=== PATIENT | female | born 1970 | race African-American/Black ===

== ENCOUNTER 2020-06-06 14:12 | Inpatient (IN) | payer MEDICARE, OTHER ==
[~2020-06-06] VITALS: Ht 162.6 cm; Wt 99.8 kg
[2020-06-06] MEDS ORDERED: ACETAMINOPHEN 325MG TABLET PO STA (15:34)
[2020-06-06] MEDS ORDERED: SODIUM CHLORIDE 0.9% 1000ML BAG (SEPSIS BOLUS) IV ONE (15:45)
[2020-06-06 16:39] LABS: HEMATOCRIT. 39.3 % (36.0-48.0); HEMOGLOBIN. 12.8 g/dL (12.0-16.0); MEAN CORPUSCULAR VOLUME 89.3 fL (81.0-99.0); MEAN PLATELET VOLUME 9.5 fl (7.4-10.4); PLATELET 144 x1000/uL (130-400); RED CELL DISTRIBUTION WIDTH 15.1 % (11.6-14.6)
[2020-06-06 16:46] LABS: INR 1.1; PROTHROMBIN TIME 11.3 sec (9.6-11.0)
[2020-06-06 16:47] LABS: CHLORIDE 97 mEq/L (98-107)
[2020-06-06 17:13] LABS: PLATELET ESTIMATE NORMAL
[2020-06-06] MEDS ORDERED: VANCOMYCIN 1 G PREMIX 200 ML IV NR (17:45)
[2020-06-06] MEDS ORDERED: CEFEPIME 2,000 MG in DEXT 5% WATER 100 ML IV SCH (18:00)
[2020-06-07] MEDS ORDERED: DEXTROSE 50% WATER 50ML SYRINGE IV ONE (06:45)
[2020-06-07] MEDS ORDERED: ACETAMINOPHEN 325MG TABLET PO PRN (06:48)
[2020-06-07 09:18] VITALS: BP 167/80
[2020-06-07] MEDS ORDERED: ASPI-1158 MT (10:57)
[2020-06-07] MEDS ORDERED: NEPVIT MT (10:57)
[2020-06-07] MEDS ORDERED: GABA-290 PO (10:57)
[2020-06-07] MEDS ORDERED: DIPH50CA47 MT (10:57)
[2020-06-07] MEDS ORDERED: PRAV10TA35 MT (10:57)
[2020-06-07] MEDS ORDERED: NIFE-33 MT (10:57)
[2020-06-07] MEDS ORDERED: FERR210T MT (10:57)
[2020-06-07] MEDS ORDERED: SEVE800T8 MT (10:57)
[2020-06-07] MEDS ORDERED: TIMO5DRO27 RIGHTEYE (11:02)
[2020-06-07] MEDS ORDERED: MIDO10TA MT (11:02)
[2020-06-07] MEDS ORDERED: LOPE2CAP MT (11:02)
[2020-06-07 11:05] VITALS: BP 169/80
[2020-06-07] MEDS ORDERED: BENZONATATE 100MG CAPSULE PO PRN (11:45)
[2020-06-07] MEDS ORDERED: ONDANSETRON HCL 4MG/2ML INJ IV PRN (11:45)
[2020-06-07] MEDS ORDERED: CEFTRIAXONE 1 G PREMIX 50 ML IV SCH (11:45)
[2020-06-07 12:00] VITALS: BP 158/77
[2020-06-07] MEDS: INSULIN LISPRO 100 UNITS/ML SUBCUT SCH ×3 (12:10→21:00)
[2020-06-07] MEDS: BLOOD SUGAR DIAGNOSTIC STRIP TEST SCH ×3 (12:32→21:00)
[2020-06-07] MEDS: LOSARTAN POTASSIUM 100 MG TABLET PO SCH (13:03)
[2020-06-07] MEDS: ENOXAPARIN 30MG/0.3ML SYR SUBCUT SCH (13:03)
[2020-06-07] MEDS: AZITHROMYCIN 250 MG TABLET PO SCH (13:04)
[2020-06-07] MEDS: ACETAMINOPHEN 325MG TABLET PO PRN (13:04)
[2020-06-07 16:00] VITALS: BP 148/77
[2020-06-07] MEDS: CEFTRIAXONE 1,000 MG in DEXTROSE 5% WATER 50 ML IV SCH (18:18)
[2020-06-07] MEDS: NIFEDIPINE XL 30MG TAB PO SCH (18:18)
[2020-06-07] MEDS ORDERED: ALBUTEROL 6.7GM HFA INHALER ORI PRN (18:30)
[2020-06-07] MEDS ORDERED: DEXAMETHASONE 10 MG/ML VIAL IV NR (18:30)
[2020-06-07 18:41] LABS: BG BASE EXCESS 1.2 mmol/L (-2.0-2.0); BG CARBOXYHEMOGLOBIN 0.4 % (0.5-1.5); BG DEOXYHEMOGLOBIN 6.4 % (0.0-5.0); BG FRACTION INSPIRED OXYGEN 28; BG HCO3 ACT 27.3 mmol/L (22.0-26.0); BG METHEMOGLOBIN 0.3 % (0.0-1.5); BG OXYGEN SATURATION 93.6 % (92.0-98.5); BG OXYHEMOGLOBIN 92.9 % (94.0-97.0); BG PCO2 49.2 mmHg (35.0-45.0); BG PH 7.362 (7.350-7.450); BG PO2 71.7 mmHg (75.0-100.0); BG SAMPLE SITE RIGHT RADIAL; BG TOTAL HEMOGLOBIN 12.9 g/dL (12.0-18.0); BG VENT MODE NASAL CANNULA
[2020-06-07 20:00] VITALS: BP 102/70
[2020-06-07] MEDS: GUAIFENESIN 600MG ER TABLET PO SCH (22:05)
[2020-06-08] VITALS: BP 157/80
[2020-06-08] MEDS: ACETAMINOPHEN 325MG TABLET PO PRN (00:25)
[2020-06-08 04:00] VITALS: BP 144/63
[2020-06-08] MEDS: BLOOD SUGAR DIAGNOSTIC STRIP TEST SCH ×4 (05:51→22:13)
[2020-06-08] MEDS: INSULIN LISPRO 100 UNITS/ML SUBCUT SCH ×4 (06:16→22:14)
[2020-06-08] MEDS ORDERED: LIDOCAINE HCL/PF 1% 2ML VIAL ONE (07:00)
[2020-06-08 08:00] VITALS: BP 145/68
[2020-06-08] MEDS ORDERED: FUROSEMIDE 100MG/10ML VIAL IVP SCH (08:15)
[2020-06-08 08:34] LABS: BG BASE EXCESS -3.2 mmol/L (-2.0-2.0); BG CARBOXYHEMOGLOBIN 0.2 % (0.5-1.5); BG DEOXYHEMOGLOBIN 4.4 % (0.0-5.0); BG HCO3 ACT 22.2 mmol/L (22.0-26.0); BG METHEMOGLOBIN 0.2 % (0.0-1.5); BG OXYGEN SATURATION 95.6 % (92.0-98.5); BG OXYHEMOGLOBIN 95.2 % (94.0-97.0); BG PCO2 41.2 mmHg (35.0-45.0); BG PH 7.349 (7.350-7.450); BG PO2 86.4 mmHg (75.0-100.0); BG SAMPLE SITE RIGHT RADIAL; BG TOTAL HEMOGLOBIN 12.9 g/dL (12.0-18.0); BG VENT MODE NASAL CANNULA
[2020-06-08] MEDS: LOSARTAN POTASSIUM 100 MG TABLET PO SCH (09:00)
[2020-06-08] MEDS: NIFEDIPINE XL 30MG TAB PO SCH (09:00)
[2020-06-08 09:29] LABS: BASOPHILS % 0.5 % (0.0-2.0); HEMATOCRIT. 37.9 % (36.0-48.0); HEMOGLOBIN. 12.2 g/dL (12.0-16.0); LYMPHOCYTES % 14.9 % (20.0-50.0); MEAN CORPUSCULAR HEMOGLOBIN 28.5 pg (28.0-32.0); MEAN CORPUSCULAR VOLUME 88.6 fL (81.0-99.0); MEAN PLATELET VOLUME 10.3 fl (7.4-10.4); MONOCYTES % 2.3 % (2.0-8.0); NEUTROPHILS % 82.3 % (40.0-76.0); PLATELET 141 x1000/uL (130-400); RED BLOOD CELL COUNT 4.28 mill/uL (4.2-5.4); RED CELL DISTRIBUTION WIDTH 15.1 % (11.6-14.6)
[2020-06-08 09:43] LABS: INR 1.1; PROTHROMBIN TIME 11.6 sec (9.6-11.0)
[2020-06-08 10:15] LABS: PHOSPHORUS 8.5 mg/dL (2.5-4.9)
[2020-06-08] MEDS: GUAIFENESIN 600MG ER TABLET PO SCH ×2 (10:33→21:49)
[2020-06-08] MEDS: SEVELAMER CARBONATE 800 MG TABLET PO SCH (10:33)
[2020-06-08] MEDS: DEXAMETHASONE 10 MG/ML VIAL IV SCH (10:33)
[2020-06-08] MEDS: AZITHROMYCIN 250 MG TABLET PO SCH (10:34)
[2020-06-08] MEDS: FOLIC ACID/VITAMIN B COMP W-C TABLET PO SCH (10:34)
[2020-06-08] MEDS ORDERED: REMDESIVIR 200 MG in SODIUM CHLORIDE 0.9% 250 ML IV ONE (11:15)
[2020-06-08] MEDS: ENOXAPARIN 30MG/0.3ML SYR SUBCUT SCH (11:22)
[2020-06-08] MEDS: ASPIRIN 81MG EC TABLET PO SCH (11:22)
[2020-06-08] MEDS ORDERED: BLOOD SUGAR DIAGNOSTIC STRIP TEST SCH (11:40)
[2020-06-08 12:00] VITALS: BP 130/67
[2020-06-08 12:17] LABS: BG BASE EXCESS -3.7 mmol/L (-2.0-2.0); BG CARBOXYHEMOGLOBIN 0.3 % (0.5-1.5); BG DEOXYHEMOGLOBIN 3.1 % (0.0-5.0); BG FRACTION INSPIRED OXYGEN 48; BG HCO3 ACT 22.1 mmol/L (22.0-26.0); BG METHEMOGLOBIN 0.3 % (0.0-1.5); BG OXYGEN SATURATION 96.9 % (92.0-98.5); BG OXYHEMOGLOBIN 96.3 % (94.0-97.0); BG PCO2 43.1 mmHg (35.0-45.0); BG PH 7.328 (7.350-7.450); BG PO2 97.6 mmHg (75.0-100.0); BG SAMPLE SITE RIGHT RADIAL; BG TOTAL HEMOGLOBIN 12.7 g/dL (12.0-18.0); BG VENT MODE MASK - SIMPLE
[2020-06-08] MEDS: CEFTRIAXONE 1,000 MG in DEXTROSE 5% WATER 50 ML IV SCH (12:32)
[2020-06-08] MEDS ORDERED: SODIUM POLYSTYRENE SULFONATE 15 G/60 ML BOT PO SCH (14:00)
[2020-06-08 15:46] VITALS: BP 121/75
[2020-06-08 20:00] VITALS: BP 123/80
[2020-06-08 20:37] LABS: T4 FREE 1.11 ng/dL (0.76-1.46)
[2020-06-08 20:52] LABS: FOLIC ACID (FOLATE) SERUM >20 ng/mL ng/mL (>5.38)
[2020-06-08 21:04] LABS: VITAMIN B12 SERUM >2000 pg/mL pg/mL (211-911)
[2020-06-09] VITALS: BP 140/68
[2020-06-09 04:00] VITALS: BP 143/77
[2020-06-09 06:47] LABS: BASOPHILS % 0.2 % (0.0-2.0); HEMATOCRIT. 37.6 % (36.0-48.0); HEMOGLOBIN. 12.3 g/dL (12.0-16.0); LYMPHOCYTES % 8.1 % (20.0-50.0); MEAN CORPUSCULAR HEMOGLOBIN 28.5 pg (28.0-32.0); MEAN CORPUSCULAR VOLUME 87.3 fL (81.0-99.0); MEAN PLATELET VOLUME 9.9 fl (7.4-10.4); MONOCYTES % 6.8 % (2.0-8.0); NEUTROPHILS % 84.9 % (40.0-76.0); PLATELET 159 x1000/uL (130-400); RED CELL DISTRIBUTION WIDTH 15.6 % (11.6-14.6)
[2020-06-09] MEDS: BLOOD SUGAR DIAGNOSTIC STRIP TEST SCH ×4 (07:30→20:50)
[2020-06-09 08:00] VITALS: BP 169/104
[2020-06-09] MEDS: NIFEDIPINE XL 30MG TAB PO SCH (09:01)
[2020-06-09] MEDS: DEXAMETHASONE 10 MG/ML VIAL IV SCH (09:01)
[2020-06-09] MEDS: ASPIRIN 81MG EC TABLET PO SCH (09:01)
[2020-06-09] MEDS: GUAIFENESIN 600MG ER TABLET PO SCH ×2 (09:01→20:50)
[2020-06-09] MEDS: FOLIC ACID/VITAMIN B COMP W-C TABLET PO SCH (09:02)
[2020-06-09] MEDS: SEVELAMER CARBONATE 800 MG TABLET PO SCH (09:02)
[2020-06-09] MEDS: CLOPIDOGREL 75MG TABLET PO SCH (09:02)
[2020-06-09] MEDS: LOSARTAN POTASSIUM 100 MG TABLET PO SCH (09:02)
[2020-06-09] MEDS: ENOXAPARIN 30MG/0.3ML SYR SUBCUT SCH (09:02)
[2020-06-09] MEDS: AZITHROMYCIN 250 MG TABLET PO SCH (09:02)
[2020-06-09] MEDS: INSULIN LISPRO 100 UNITS/ML SUBCUT SCH ×4 (09:04→21:03)
[2020-06-09 09:12] LABS: CHLORIDE 97 mEq/L (98-107)
[2020-06-09] MEDS ORDERED: REMDESIVIR 100 MG in SODIUM CHLORIDE 0.9% 250 ML IV SCH (11:15)
[2020-06-09 12:00] VITALS: BP 151/63
[2020-06-09] MEDS ORDERED: LORAZEPAM 2MG/ML CPJ IV SCH (13:00)
[2020-06-09] MEDS: CEFTRIAXONE 1,000 MG in DEXTROSE 5% WATER 50 ML IV SCH (13:38)
[2020-06-09 16:00] VITALS: BP_SYST 130; BP_SYST 87; BP_DIAS 60; BP_DIAS 62
[2020-06-09 20:00] VITALS: BP 145/78
[2020-06-09] MEDS: ATORVASTATIN CALCIUM 40MG TABLET PO SCH (20:47)
[2020-06-10] VITALS: BP 161/77
[2020-06-10 04:00] VITALS: BP 116/56
[2020-06-10 06:04] LABS: CHLORIDE 107 mEq/L (98-107)
[2020-06-10 06:17] LABS: HDL CHOLESTEROL 15 mg/dL (40-59); LDL CHOLESTEROL 91 mg/dL (5-100)
[2020-06-10] MEDS: INSULIN LISPRO 100 UNITS/ML SUBCUT SCH ×4 (06:36→20:54)
[2020-06-10] MEDS: BLOOD SUGAR DIAGNOSTIC STRIP TEST SCH ×4 (06:36→20:54)
[2020-06-10 06:37] LABS: EOSINOPHILS % 0.3 % (0.0-5.0); HEMATOCRIT. 36.9 % (36.0-48.0); HEMOGLOBIN. 12.4 g/dL (12.0-16.0); LYMPHOCYTES % 8.6 % (20.0-50.0); MEAN CORPUSCULAR HEMOGLOBIN 28.9 pg (28.0-32.0); MEAN CORPUSCULAR VOLUME 85.9 fL (81.0-99.0); NEUTROPHILS % 84.1 % (40.0-76.0); PLATELET 143 x1000/uL (130-400); RED CELL DISTRIBUTION WIDTH 14.8 % (11.6-14.6)
[2020-06-10 08:00] VITALS: BP 144/67
[2020-06-10 08:57] LABS: BG BASE EXCESS -0.5 mmol/L (-2.0-2.0); BG CARBOXYHEMOGLOBIN 0.4 % (0.5-1.5); BG DEOXYHEMOGLOBIN 6.6 % (0.0-5.0); BG FRACTION INSPIRED OXYGEN 32; BG HCO3 ACT 24.4 mmol/L (22.0-26.0); BG METHEMOGLOBIN 0.2 % (0.0-1.5); BG OXYGEN SATURATION 93.4 % (92.0-98.5); BG OXYHEMOGLOBIN 92.8 % (94.0-97.0); BG PCO2 40.9 mmHg (35.0-45.0); BG PH 7.393 (7.350-7.450); BG PO2 68.1 mmHg (75.0-100.0); BG SAMPLE SITE RIGHT RADIAL; BG TOTAL HEMOGLOBIN 12.8 g/dL (12.0-18.0); BG VENT MODE NASAL CANNULA
[2020-06-10] MEDS ORDERED: NIFEDIPINE XL 60MG TAB PO SCH (09:00)
[2020-06-10] MEDS: LOSARTAN POTASSIUM 100 MG TABLET PO SCH (09:00)
[2020-06-10] MEDS: CLOPIDOGREL 75MG TABLET PO SCH (09:32)
[2020-06-10] MEDS: AZITHROMYCIN 250 MG TABLET PO SCH (09:32)
[2020-06-10] MEDS: FOLIC ACID/VITAMIN B COMP W-C TABLET PO SCH (09:32)
[2020-06-10] MEDS: SEVELAMER CARBONATE 800 MG TABLET PO SCH (09:32)
[2020-06-10] MEDS: DEXAMETHASONE 10 MG/ML VIAL IV SCH (09:32)
[2020-06-10] MEDS: ASPIRIN 81MG EC TABLET PO SCH (09:32)
[2020-06-10] MEDS: GUAIFENESIN 600MG ER TABLET PO SCH ×2 (09:32→20:34)
[2020-06-10] MEDS: ENOXAPARIN 30MG/0.3ML SYR SUBCUT SCH (09:38)
[2020-06-10 12:00] VITALS: BP 143/71
[2020-06-10] MEDS: CEFTRIAXONE 1,000 MG in DEXTROSE 5% WATER 50 ML IV SCH (13:52)
[2020-06-10 14:40] LABS: BG CARBOXYHEMOGLOBIN 0.5 % (0.5-1.5); BG DEOXYHEMOGLOBIN 14.2 % (0.0-5.0); BG FRACTION INSPIRED OXYGEN 21; BG HCO3 ACT 23.4 mmol/L (22.0-26.0); BG METHEMOGLOBIN 0.1 % (0.0-1.5); BG OXYGEN SATURATION 85.7 % (92.0-98.5); BG OXYHEMOGLOBIN 85.2 % (94.0-97.0); BG PCO2 38.3 mmHg (35.0-45.0); BG PH 7.404 (7.350-7.450); BG PO2 52.2 mmHg (75.0-100.0); BG SAMPLE SITE RIGHT RADIAL; BG TOTAL HEMOGLOBIN 13.2 g/dL (12.0-18.0); BG VENT MODE ROOM AIR
[2020-06-10 16:00] VITALS: BP 164/82
[2020-06-10 20:00] VITALS: BP 160/74
[2020-06-10] MEDS: ATORVASTATIN CALCIUM 40MG TABLET PO SCH (20:34)
[2020-06-10] MEDS: ACETAMINOPHEN 325MG TABLET PO PRN (20:35)
[2020-06-10] MEDS ORDERED: NIFEDIPINE XL 60MG TAB PO NR (20:45)
[2020-06-10] MEDS ORDERED: LOSARTAN POTASSIUM 100 MG TABLET PO NR (20:45)
[2020-06-11] VITALS: BP 156/62
[2020-06-11 04:00] VITALS: BP 156/76
[2020-06-11] MEDS: BLOOD SUGAR DIAGNOSTIC STRIP TEST SCH ×4 (06:27→21:01)
[2020-06-11] MEDS: INSULIN LISPRO 100 UNITS/ML SUBCUT SCH ×4 (06:28→21:02)
[2020-06-11 08:00] VITALS: BP 141/68
[2020-06-11] MEDS: LOSARTAN POTASSIUM 100 MG TABLET PO SCH (08:58)
[2020-06-11] MEDS: GUAIFENESIN 600MG ER TABLET PO SCH ×2 (08:58→21:00)
[2020-06-11] MEDS: ASPIRIN 81MG EC TABLET PO SCH (08:58)
[2020-06-11] MEDS: AZITHROMYCIN 250 MG TABLET PO SCH (08:58)
[2020-06-11] MEDS: SEVELAMER CARBONATE 800 MG TABLET PO SCH (08:58)
[2020-06-11] MEDS: FOLIC ACID/VITAMIN B COMP W-C TABLET PO SCH (08:59)
[2020-06-11] MEDS: DEXAMETHASONE 10 MG/ML VIAL IV SCH (08:59)
[2020-06-11] MEDS: NIFEDIPINE XL 60MG TAB PO SCH ×2 (08:59→21:00)
[2020-06-11] MEDS: CLOPIDOGREL 75MG TABLET PO SCH (08:59)
[2020-06-11] MEDS: ENOXAPARIN 30MG/0.3ML SYR SUBCUT SCH (09:00)
[2020-06-11 09:30] LABS: BG BASE EXCESS 3.1 mmol/L (-2.0-2.0); BG CARBOXYHEMOGLOBIN 0.6 % (0.5-1.5); BG DEOXYHEMOGLOBIN 14.8 % (0.0-5.0); BG HCO3 ACT 27.1 mmol/L (22.0-26.0); BG METHEMOGLOBIN 0.2 % (0.0-1.5); BG OXYGEN SATURATION 85.1 % (92.0-98.5); BG OXYHEMOGLOBIN 84.4 % (94.0-97.0); BG PCO2 39.2 mmHg (35.0-45.0); BG PH 7.457 (7.350-7.450); BG PO2 48.9 mmHg (75.0-100.0); BG SAMPLE SITE RIGHT RADIAL; BG TOTAL HEMOGLOBIN 15.4 g/dL (12.0-18.0); BG VENT MODE NASAL CANNULA
[2020-06-11 12:00] VITALS: BP 125/64
[2020-06-11] MEDS: CEFTRIAXONE 1,000 MG in DEXTROSE 5% WATER 50 ML IV SCH (12:14)
[2020-06-11 16:00] VITALS: BP 92/56
[2020-06-11] MEDS ORDERED: DEXTROSE 50% WATER 50ML SYRINGE IV PRN (18:45)
[2020-06-11 20:00] VITALS: BP 138/67
[2020-06-11] MEDS: ATORVASTATIN CALCIUM 40MG TABLET PO SCH (21:00)
[2020-06-11] MEDS ORDERED: BLOOD SUGAR DIAGNOSTIC STRIP TEST SCH (21:00)
[2020-06-11] MEDS: INSULIN GLARGINE UD 100 UNITS/ML SYR SUBCUT SCH (21:27)
[2020-06-12] VITALS (8 sets, daily range): BP systolic 100–130; BP diastolic 44–67
[2020-06-12] MEDS: BLOOD SUGAR DIAGNOSTIC STRIP TEST SCH ×4 (06:41→20:04)
[2020-06-12] MEDS: INSULIN LISPRO 100 UNITS/ML SUBCUT SCH ×4 (07:10→20:03)
[2020-06-12] MEDS: ENOXAPARIN 30MG/0.3ML SYR SUBCUT SCH (08:21)
[2020-06-12] MEDS: LOSARTAN POTASSIUM 100 MG TABLET PO SCH (08:22)
[2020-06-12] MEDS: GUAIFENESIN 600MG ER TABLET PO SCH ×2 (08:22→20:04)
[2020-06-12] MEDS: CLOPIDOGREL 75MG TABLET PO SCH (08:22)
[2020-06-12] MEDS: FOLIC ACID/VITAMIN B COMP W-C TABLET PO SCH (08:22)
[2020-06-12] MEDS: SEVELAMER CARBONATE 800 MG TABLET PO SCH (08:22)
[2020-06-12] MEDS: NIFEDIPINE XL 60MG TAB PO SCH ×2 (08:22→20:04)
[2020-06-12] MEDS: ASPIRIN 81MG EC TABLET PO SCH (08:22)
[2020-06-12] MEDS: DEXAMETHASONE 10 MG/ML VIAL IV SCH (08:22)
[2020-06-12] MEDS: AZITHROMYCIN 250 MG TABLET PO SCH (08:22)
[2020-06-12 09:43] LABS: HEMATOCRIT. 40.6 % (36.0-48.0); HEMOGLOBIN. 13.1 g/dL (12.0-16.0); MEAN CORPUSCULAR HEMOGLOBIN 28.5 pg (28.0-32.0); MEAN CORPUSCULAR VOLUME 88.3 fL (81.0-99.0); RED CELL DISTRIBUTION WIDTH 15.5 % (11.6-14.6)
[2020-06-12] MEDS: INSULIN GLARGINE UD 100 UNITS/ML SYR SUBCUT SCH ×2 (10:17→23:29)
[2020-06-12 10:32] LABS: CHLORIDE 95 mEq/L (98-107)
[2020-06-12 10:38] LABS: PHOSPHORUS 6.3 mg/dL (2.5-4.9)
[2020-06-12 10:39] LABS: LDL CHOLESTEROL 62 mg/dL (5-100)
[2020-06-12 10:40] LABS: HDL CHOLESTEROL 64 mg/dL (40-59)
[2020-06-12 11:53] LABS: PLATELET ESTIMATE NORMAL
[2020-06-12 11:55] LABS: PLATELET 185 x1000/uL (130-400)
[2020-06-12] MEDS: CEFTRIAXONE 1,000 MG in DEXTROSE 5% WATER 50 ML IV SCH (12:31)
[2020-06-12] MEDS: ATORVASTATIN CALCIUM 40MG TABLET PO SCH (20:04)
[2020-06-12] MEDS ORDERED: FUROSEMIDE 100MG/10ML VIAL IVP NR (21:15)
[2020-06-13] VITALS (42 sets, daily range): BP systolic 82–149; BP diastolic 32–90
[2020-06-13 04:11] LABS: BG BASE EXCESS 1.5 mmol/L (-2.0-2.0); BG CARBOXYHEMOGLOBIN 0.5 % (0.5-1.5); BG DEOXYHEMOGLOBIN 11.8 % (0.0-5.0); BG FRACTION INSPIRED OXYGEN 100; BG HCO3 ACT 24.8 mmol/L (22.0-26.0); BG METHEMOGLOBIN 0.1 % (0.0-1.5); BG OXYGEN SATURATION 88.1 % (92.0-98.5); BG OXYHEMOGLOBIN 87.6 % (94.0-97.0); BG PCO2 35.2 mmHg (35.0-45.0); BG PH 7.466 (7.350-7.450); BG PO2 54.5 mmHg (75.0-100.0); BG SAMPLE SITE RIGHT RADIAL; BG TOTAL HEMOGLOBIN 14.1 g/dL (12.0-18.0); BG VENT MODE MASK - NRB
[2020-06-13 06:35] LABS: HEMATOCRIT. 38.8 % (36.0-48.0); HEMOGLOBIN. 12.8 g/dL (12.0-16.0); MEAN CORPUSCULAR HEMOGLOBIN 28.5 pg (28.0-32.0); MEAN CORPUSCULAR VOLUME 86.2 fL (81.0-99.0); RED CELL DISTRIBUTION WIDTH 15.6 % (11.6-14.6)
[2020-06-13 06:41] LABS: CHLORIDE 100 mEq/L (98-107)
[2020-06-13] MEDS: BLOOD SUGAR DIAGNOSTIC STRIP TEST SCH ×4 (06:49→21:00)
[2020-06-13] MEDS: INSULIN LISPRO 100 UNITS/ML SUBCUT SCH ×4 (06:49→22:59)
[2020-06-13] MEDS ORDERED: HYDROCODONE/ACETAMINOPHEN 5/325MG TABLET PO PRN (07:00)
[2020-06-13 08:07] LABS: PHOSPHORUS 5.5 mg/dL (2.5-4.9)
[2020-06-13] MEDS: ASPIRIN 81MG EC TABLET PO SCH (09:42)
[2020-06-13] MEDS: DEXAMETHASONE 10 MG/ML VIAL IV SCH (09:42)
[2020-06-13] MEDS: SEVELAMER CARBONATE 800 MG TABLET PO SCH (09:42)
[2020-06-13] MEDS: LOSARTAN POTASSIUM 100 MG TABLET PO SCH (09:42)
[2020-06-13] MEDS: CLOPIDOGREL 75MG TABLET PO SCH (09:43)
[2020-06-13] MEDS: NIFEDIPINE XL 60MG TAB PO SCH ×2 (09:43→21:00)
[2020-06-13] MEDS: GUAIFENESIN 600MG ER TABLET PO SCH ×2 (09:43→22:58)
[2020-06-13] MEDS: FOLIC ACID/VITAMIN B COMP W-C TABLET PO SCH (09:43)
[2020-06-13] MEDS: ENOXAPARIN 30MG/0.3ML SYR SUBCUT SCH (09:44)
[2020-06-13] MEDS ORDERED: LIDOCAINE HCL/PF 1% 2ML VIAL ONE (10:00)
[2020-06-13 10:55] LABS: PLATELET ESTIMATE NORMAL
[2020-06-13 10:57] LABS: PLATELET 252 x1000/uL (130-400)
[2020-06-13 15:58] LABS: BG BASE EXCESS 0.2 mmol/L (-2.0-2.0); BG CARBOXYHEMOGLOBIN 0.3 % (0.5-1.5); BG DEOXYHEMOGLOBIN 22.1 % (0.0-5.0); BG FRACTION INSPIRED OXYGEN 100; BG HCO3 ACT 24.1 mmol/L (22.0-26.0); BG METHEMOGLOBIN 0.1 % (0.0-1.5); BG OXYGEN SATURATION 77.8 % (92.0-98.5); BG OXYHEMOGLOBIN 77.5 % (94.0-97.0); BG PH 7.432 (7.350-7.450); BG PO2 43.2 mmHg (75.0-100.0); BG SAMPLE SITE RIGHT RADIAL; BG TOTAL HEMOGLOBIN 13.6 g/dL (12.0-18.0); BG VENT MODE MASK - NRB
[2020-06-13] MEDS ORDERED: PROPOFOL 10MG/ML 100ML 100 ML IV ONE (17:15)
[2020-06-13] MEDS: PROPOFOL 10MG/ML 100ML 100 ML IV PRN (18:00)
[2020-06-13 19:14] LABS: BG BASE EXCESS -1.8 mmol/L (-2.0-2.0); BG CARBOXYHEMOGLOBIN 0.3 % (0.5-1.5); BG DEOXYHEMOGLOBIN 1.9 % (0.0-5.0); BG FRACTION INSPIRED OXYGEN 100; BG HCO3 ACT 22.1 mmol/L (22.0-26.0); BG METHEMOGLOBIN 0.3 % (0.0-1.5); BG OXYGEN SATURATION 98.1 % (92.0-98.5); BG OXYHEMOGLOBIN 97.5 % (94.0-97.0); BG PCO2 35.4 mmHg (35.0-45.0); BG PH 7.414 (7.350-7.450); BG PO2 119.9 mmHg (75.0-100.0); BG SAMPLE SITE RIGHT RADIAL; BG TOTAL HEMOGLOBIN 14.1 g/dL (12.0-18.0); BG VENT MODE VENT - AC
[2020-06-13] MEDS: ATORVASTATIN CALCIUM 40MG TABLET PO SCH (22:57)
[2020-06-14] VITALS (45 sets, daily range): BP systolic 89–121; BP diastolic 48–75
[2020-06-14] MEDS: PROPOFOL 10MG/ML 100ML 100 ML IV PRN ×4 (00:17→23:12)
[2020-06-14 04:34] LABS: HEMATOCRIT. 38.5 % (36.0-48.0); HEMOGLOBIN. 12.4 g/dL (12.0-16.0); MEAN CORPUSCULAR HEMOGLOBIN 28.2 pg (28.0-32.0); MEAN CORPUSCULAR VOLUME 87.3 fL (81.0-99.0); MEAN PLATELET VOLUME 10.1 fl (7.4-10.4); PLATELET 262 x1000/uL (130-400); RED BLOOD CELL COUNT 4.41 mill/uL (4.2-5.4); RED CELL DISTRIBUTION WIDTH 15.9 % (11.6-14.6)
[2020-06-14] MEDS ORDERED: INSULIN LISPRO 100 UNITS/ML SUBCUT SCH (06:00)
[2020-06-14] MEDS: BLOOD SUGAR DIAGNOSTIC STRIP TEST SCH ×3 (06:09→17:28)
[2020-06-14 08:42] LABS: PLATELET ESTIMATE NORMAL
[2020-06-14] MEDS ORDERED: PROPOFOL 10MG/ML 100ML 100 ML IV PRN (09:45)
[2020-06-14 09:55] LABS: BG BASE EXCESS -3.7 mmol/L (-2.0-2.0); BG CARBOXYHEMOGLOBIN 0.2 % (0.5-1.5); BG DEOXYHEMOGLOBIN 1.8 % (0.0-5.0); BG FRACTION INSPIRED OXYGEN 80; BG HCO3 ACT 20.9 mmol/L (22.0-26.0); BG METHEMOGLOBIN 0.3 % (0.0-1.5); BG OXYGEN SATURATION 98.2 % (92.0-98.5); BG OXYHEMOGLOBIN 97.7 % (94.0-97.0); BG PH 7.381 (7.350-7.450); BG PO2 131.4 mmHg (75.0-100.0); BG SAMPLE SITE RIGHT RADIAL; BG TOTAL HEMOGLOBIN 11.9 g/dL (12.0-18.0); BG TOTAL RESPIRATORY RATE 19 b/min; BG VENT MODE VENT - AC
[2020-06-14] MEDS: FOLIC ACID/VITAMIN B COMP W-C TABLET PO SCH (10:21)
[2020-06-14] MEDS: DEXAMETHASONE 10 MG/ML VIAL IV SCH (10:21)
[2020-06-14] MEDS: ENOXAPARIN 30MG/0.3ML SYR SUBCUT SCH (10:21)
[2020-06-14] MEDS: SEVELAMER CARBONATE 800 MG TABLET PO SCH (10:22)
[2020-06-14] MEDS: ASPIRIN 81MG EC TABLET PO SCH (10:22)
[2020-06-14] MEDS: CLOPIDOGREL 75MG TABLET PO SCH (10:22)
[2020-06-14] MEDS: IPRATROPIUM/ALBUTEROL 0.5-3(2.5)MG/3ML NEB HHN SCH ×4 (11:59→23:54)
[2020-06-14] MEDS: INSULIN LISPRO 100 UNITS/ML SUBCUT SCH ×2 (12:00→17:27)
[2020-06-14] MEDS: ATORVASTATIN CALCIUM 40MG TABLET PO SCH (21:13)
[2020-06-15] VITALS (83 sets, daily range): BP systolic 77–123; BP diastolic 37–72
[2020-06-15] MEDS: IPRATROPIUM/ALBUTEROL 0.5-3(2.5)MG/3ML NEB HHN SCH ×5 (03:53→20:13)
[2020-06-15] MEDS ORDERED: MIDAZOLAM HCL 100 MG in DEXT 5% WATER 80 ML IV PRN (04:00)
[2020-06-15] MEDS: FENTANYL CITRATE/PF 1,000 MCG in SODIUM CHLORIDE 0.9% 80 ML IV PRN ×2 (04:04→21:31)
[2020-06-15] MEDS: SEVELAMER CARBONATE 800 MG TABLET PO SCH (08:56)
[2020-06-15] MEDS: ASPIRIN 81MG EC TABLET PO SCH (08:56)
[2020-06-15] MEDS: FOLIC ACID/VITAMIN B COMP W-C TABLET PO SCH (08:56)
[2020-06-15] MEDS: CLOPIDOGREL 75MG TABLET PO SCH (08:56)
[2020-06-15] MEDS: DEXAMETHASONE 10 MG/ML VIAL IV SCH (08:57)
[2020-06-15] MEDS: ENOXAPARIN 30MG/0.3ML SYR SUBCUT SCH (08:58)
[2020-06-15 09:30] LABS: HEMATOCRIT. 37.4 % (36.0-48.0); HEMOGLOBIN. 12.1 g/dL (12.0-16.0); MEAN CORPUSCULAR VOLUME 86.2 fL (81.0-99.0); MEAN PLATELET VOLUME 9.6 fl (7.4-10.4); PLATELET 276 x1000/uL (130-400); RED BLOOD CELL COUNT 4.34 mill/uL (4.2-5.4); RED CELL DISTRIBUTION WIDTH 15.8 % (11.6-14.6)
[2020-06-15 09:44] LABS: BG BASE EXCESS 1.4 mmol/L (-2.0-2.0); BG CARBOXYHEMOGLOBIN 0.3 % (0.5-1.5); BG DEOXYHEMOGLOBIN 1.9 % (0.0-5.0); BG HCO3 ACT 24.9 mmol/L (22.0-26.0); BG METHEMOGLOBIN 0.1 % (0.0-1.5); BG OXYGEN SATURATION 98.1 % (92.0-98.5); BG OXYHEMOGLOBIN 97.7 % (94.0-97.0); BG PCO2 35.8 mmHg (35.0-45.0); BG PO2 110.1 mmHg (75.0-100.0); BG SAMPLE SITE RIGHT RADIAL; BG TOTAL HEMOGLOBIN 13.1 g/dL (12.0-18.0); BG VENT MODE VENT - APRV
[2020-06-15] MEDS ORDERED: LIDOCAINE HCL 1% 20ML VIAL (Pyxis) INJ ONE (10:57)
[2020-06-15] MEDS: BLOOD SUGAR DIAGNOSTIC STRIP TEST SCH ×2 (12:00→18:04)
[2020-06-15] MEDS: INSULIN LISPRO 100 UNITS/ML SUBCUT SCH ×3 (12:00→18:04)
[2020-06-15 14:16] LABS: PLATELET ESTIMATE NORMAL
[2020-06-15] MEDS ORDERED: MIDODRINE HCL 5MG TABLET PO SCH (17:30)
[2020-06-15] MEDS: MIDODRINE HCL 5MG TABLET PO SCH (18:01)
[2020-06-15] MEDS: ATORVASTATIN CALCIUM 40MG TABLET PO SCH (21:11)
[2020-06-16] VITALS (70 sets, daily range): BP systolic 102–154; BP diastolic 40–80
[2020-06-16] MEDS: BLOOD SUGAR DIAGNOSTIC STRIP TEST SCH ×5 (00:33→23:47)
[2020-06-16] MEDS: INSULIN LISPRO 100 UNITS/ML SUBCUT SCH ×5 (00:33→23:48)
[2020-06-16] MEDS: IPRATROPIUM/ALBUTEROL 0.5-3(2.5)MG/3ML NEB HHN SCH ×5 (01:17→20:04)
[2020-06-16 06:41] LABS: HEMATOCRIT. 33.8 % (36.0-48.0); HEMOGLOBIN. 10.9 g/dL (12.0-16.0); MEAN CORPUSCULAR HEMOGLOBIN 28.4 pg (28.0-32.0); MEAN CORPUSCULAR VOLUME 87.8 fL (81.0-99.0); MEAN PLATELET VOLUME 9.7 fl (7.4-10.4); PLATELET 277 x1000/uL (130-400); RED BLOOD CELL COUNT 3.85 mill/uL (4.2-5.4); RED CELL DISTRIBUTION WIDTH 15.5 % (11.6-14.6)
[2020-06-16 07:14] LABS: PHOSPHORUS 8.2 mg/dL (2.5-4.9)
[2020-06-16] MEDS: DEXAMETHASONE 10 MG/ML VIAL IV SCH (08:10)
[2020-06-16] MEDS: ENOXAPARIN 40MG/0.4ML SYR SUBCUT SCH (08:11)
[2020-06-16] MEDS: ASPIRIN 81MG EC TABLET PO SCH (08:11)
[2020-06-16] MEDS: CLOPIDOGREL 75MG TABLET PO SCH (08:11)
[2020-06-16] MEDS: FOLIC ACID/VITAMIN B COMP W-C TABLET PO SCH (08:11)
[2020-06-16] MEDS: MIDODRINE HCL 5MG TABLET PO SCH ×3 (08:12→17:44)
[2020-06-16] MEDS: SEVELAMER CARBONATE 800 MG TABLET PO SCH ×3 (08:12→17:43)
[2020-06-16] MEDS ORDERED: MIDODRINE HCL 5MG TABLET PO SCH (09:00)
[2020-06-16 09:54] LABS: BG BASE EXCESS -2.4 mmol/L (-2.0-2.0); BG CARBOXYHEMOGLOBIN 0.2 % (0.5-1.5); BG DEOXYHEMOGLOBIN 5.3 % (0.0-5.0); BG FRACTION INSPIRED OXYGEN 50; BG HCO3 ACT 21.9 mmol/L (22.0-26.0); BG METHEMOGLOBIN 0.3 % (0.0-1.5); BG OXYGEN SATURATION 94.7 % (92.0-98.5); BG OXYHEMOGLOBIN 94.2 % (94.0-97.0); BG PCO2 36.3 mmHg (35.0-45.0); BG PH 7.399 (7.350-7.450); BG PO2 78.2 mmHg (75.0-100.0); BG SAMPLE SITE RIGHT BRACHIAL; BG TOTAL HEMOGLOBIN 11.7 g/dL (12.0-18.0); BG TOTAL RESPIRATORY RATE 20 b/min; BG VENT MODE VENT - PRVC
[2020-06-16] MEDS ORDERED: LACTULOSE 20G/30ML UDC PO SCH (11:30)
[2020-06-16 11:35] LABS: PLATELET ESTIMATE NORMAL
[2020-06-16] MEDS: MIDAZOLAM HCL 100 MG in SODIUM CHLORIDE 0.9% 80 ML IV PRN (15:26)
[2020-06-16] MEDS: ATORVASTATIN CALCIUM 40MG TABLET PO SCH (21:27)
[2020-06-17] VITALS (91 sets, daily range): BP systolic 82–170; BP diastolic 43–105
[2020-06-17] MEDS: IPRATROPIUM/ALBUTEROL 0.5-3(2.5)MG/3ML NEB HHN SCH ×6 (00:03→20:20)
[2020-06-17] MEDS: INSULIN LISPRO 100 UNITS/ML SUBCUT SCH ×4 (06:00→23:55)
[2020-06-17] MEDS: BLOOD SUGAR DIAGNOSTIC STRIP TEST SCH ×4 (06:00→23:53)
[2020-06-17 07:37] LABS: BG BASE EXCESS 2.7 mmol/L (-2.0-2.0); BG CARBOXYHEMOGLOBIN 0.5 % (0.5-1.5); BG HCO3 ACT 26.3 mmol/L (22.0-26.0); BG OXYGEN SATURATION 86.9 % (92.0-98.5); BG OXYHEMOGLOBIN 86.5 % (94.0-97.0); BG PCO2 36.9 mmHg (35.0-45.0); BG PH 7.471 (7.350-7.450); BG PO2 52.3 mmHg (75.0-100.0); BG SAMPLE SITE RIGHT RADIAL; BG TOTAL HEMOGLOBIN 12.2 g/dL (12.0-18.0); BG VENT MODE VENT - APRV
[2020-06-17 08:17] LABS: HEMATOCRIT. 33.7 % (36.0-48.0); HEMOGLOBIN. 11.1 g/dL (12.0-16.0); MEAN CORPUSCULAR HEMOGLOBIN 28.6 pg (28.0-32.0); MEAN CORPUSCULAR VOLUME 86.8 fL (81.0-99.0); MEAN PLATELET VOLUME 9.3 fl (7.4-10.4); PLATELET 255 x1000/uL (130-400); RED BLOOD CELL COUNT 3.88 mill/uL (4.2-5.4); RED CELL DISTRIBUTION WIDTH 15.3 % (11.6-14.6)
[2020-06-17] MEDS: SEVELAMER CARBONATE 800 MG TABLET PO SCH ×3 (08:23→17:33)
[2020-06-17] MEDS: DEXAMETHASONE 10 MG/ML VIAL IV SCH (08:23)
[2020-06-17] MEDS: FOLIC ACID/VITAMIN B COMP W-C TABLET PO SCH (08:24)
[2020-06-17] MEDS: MIDODRINE HCL 5MG TABLET PO SCH ×3 (08:24→17:32)
[2020-06-17] MEDS: ASPIRIN 81MG EC TABLET PO SCH (08:24)
[2020-06-17] MEDS: CLOPIDOGREL 75MG TABLET PO SCH (08:24)
[2020-06-17] MEDS: ENOXAPARIN 40MG/0.4ML SYR SUBCUT SCH (08:25)
[2020-06-17] MEDS: FENTANYL CITRATE/PF 1,000 MCG in SODIUM CHLORIDE 0.9% 80 ML IV PRN (08:39)
[2020-06-17] MEDS ORDERED: PIPERACILLIN/TAZOBACTAM 3.375 G in DEXT 5% WATER 100 ML IV SCH (10:45)
[2020-06-17 11:44] LABS: PLATELET ESTIMATE NORMAL
[2020-06-17] MEDS: DOCUSATE SODIUM 250MG CAPSULE PO SCH (12:21)
[2020-06-17] MEDS: PIPERACILLIN/TAZOBACTAM 2.25 G in DEXTROSE 5% WATER 50 ML IV SCH ×2 (14:31→23:38)
[2020-06-17] MEDS: ATORVASTATIN CALCIUM 40MG TABLET PO SCH (21:55)
[2020-06-17] MEDS: INSULIN GLARGINE UD 100 UNITS/ML SYR SUBCUT SCH (21:57)
[2020-06-18] VITALS (94 sets, daily range): BP systolic 112–174; BP diastolic 48–80
[2020-06-18] MEDS: IPRATROPIUM/ALBUTEROL 0.5-3(2.5)MG/3ML NEB HHN SCH ×6 (00:35→20:42)
[2020-06-18] MEDS: MIDAZOLAM HCL 100 MG in SODIUM CHLORIDE 0.9% 80 ML IV PRN (01:25)
[2020-06-18 05:04] LABS: HEMATOCRIT. 34.3 % (36.0-48.0); HEMOGLOBIN. 11.1 g/dL (12.0-16.0); MEAN CORPUSCULAR HEMOGLOBIN 28.5 pg (28.0-32.0); MEAN CORPUSCULAR VOLUME 88.2 fL (81.0-99.0); MEAN PLATELET VOLUME 9.7 fl (7.4-10.4); PLATELET 254 x1000/uL (130-400); RED BLOOD CELL COUNT 3.89 mill/uL (4.2-5.4); RED CELL DISTRIBUTION WIDTH 15.3 % (11.6-14.6)
[2020-06-18 06:01] LABS: PHOSPHORUS 6.3 mg/dL (2.5-4.9)
[2020-06-18] MEDS: BLOOD SUGAR DIAGNOSTIC STRIP TEST SCH ×3 (06:25→16:38)
[2020-06-18] MEDS: INSULIN LISPRO 100 UNITS/ML SUBCUT SCH ×3 (06:28→16:39)
[2020-06-18] MEDS: SEVELAMER CARBONATE 800 MG TABLET PO SCH ×3 (06:56→16:38)
[2020-06-18 07:24] LABS: PLATELET ESTIMATE NORMAL
[2020-06-18 08:02] LABS: BG BASE EXCESS -0.1 mmol/L (-2.0-2.0); BG CARBOXYHEMOGLOBIN 0.2 % (0.5-1.5); BG DEOXYHEMOGLOBIN 4.4 % (0.0-5.0); BG FRACTION INSPIRED OXYGEN 80; BG HCO3 ACT 25.2 mmol/L (22.0-26.0); BG OXYGEN SATURATION 95.6 % (92.0-98.5); BG OXYHEMOGLOBIN 95.4 % (94.0-97.0); BG PCO2 43.6 mmHg (35.0-45.0); BG PO2 82.7 mmHg (75.0-100.0); BG SAMPLE SITE RIGHT BRACHIAL; BG TOTAL HEMOGLOBIN 12.9 g/dL (12.0-18.0); BG VENT MODE PRVC
[2020-06-18] MEDS: ASPIRIN 81MG EC TABLET PO SCH (08:02)
[2020-06-18] MEDS: FOLIC ACID/VITAMIN B COMP W-C TABLET PO SCH (08:02)
[2020-06-18] MEDS: CLOPIDOGREL 75MG TABLET PO SCH (08:02)
[2020-06-18] MEDS: DOCUSATE SODIUM 250MG CAPSULE PO SCH (08:02)
[2020-06-18] MEDS: ENOXAPARIN 40MG/0.4ML SYR SUBCUT SCH (08:03)
[2020-06-18] MEDS: DEXAMETHASONE 4MG/ML 1ML VIAL IV SCH (08:03)
[2020-06-18] MEDS: FENTANYL CITRATE/PF 1,000 MCG in SODIUM CHLORIDE 0.9% 80 ML IV PRN (08:17)
[2020-06-18] MEDS: INSULIN GLARGINE UD 100 UNITS/ML SYR SUBCUT SCH ×2 (12:09→21:33)
[2020-06-18] MEDS: PIPERACILLIN/TAZOBACTAM 2.25 G in DEXTROSE 5% WATER 50 ML IV SCH (12:10)
[2020-06-18] MEDS ORDERED: SORBITOL 70% SOLN 30ML PO NR (12:45)
[2020-06-18] MEDS: ATORVASTATIN CALCIUM 40MG TABLET PO SCH (21:29)
[2020-06-19] VITALS (96 sets, daily range): BP systolic 90–172; BP diastolic 34–114
[2020-06-19] MEDS: MIDAZOLAM HCL 100 MG in SODIUM CHLORIDE 0.9% 80 ML IV PRN ×2 (00:12→23:13)
[2020-06-19] MEDS: BLOOD SUGAR DIAGNOSTIC STRIP TEST SCH ×4 (00:49→16:59)
[2020-06-19] MEDS: PIPERACILLIN/TAZOBACTAM 2.25 G in DEXTROSE 5% WATER 50 ML IV SCH ×3 (00:56→23:14)
[2020-06-19] MEDS: INSULIN LISPRO 100 UNITS/ML SUBCUT SCH ×5 (00:56→23:15)
[2020-06-19] MEDS: FENTANYL CITRATE/PF 1,000 MCG in SODIUM CHLORIDE 0.9% 80 ML IV PRN ×2 (01:21→23:14)
[2020-06-19] MEDS: IPRATROPIUM/ALBUTEROL 0.5-3(2.5)MG/3ML NEB HHN SCH ×6 (04:23→19:48)
[2020-06-19 05:39] LABS: HEMATOCRIT. 31.4 % (36.0-48.0); HEMOGLOBIN. 10.1 g/dL (12.0-16.0); MEAN CORPUSCULAR HEMOGLOBIN 28.4 pg (28.0-32.0); MEAN PLATELET VOLUME 9.7 fl (7.4-10.4); PLATELET 260 x1000/uL (130-400); RED BLOOD CELL COUNT 3.57 mill/uL (4.2-5.4); RED CELL DISTRIBUTION WIDTH 15.7 % (11.6-14.6)
[2020-06-19 05:55] LABS: PHOSPHORUS 5.1 mg/dL (2.5-4.9)
[2020-06-19] MEDS: SEVELAMER CARBONATE 800 MG TABLET PO SCH ×3 (06:04→16:57)
[2020-06-19 07:39] LABS: BG BASE EXCESS -1.2 mmol/L (-2.0-2.0); BG CARBOXYHEMOGLOBIN 0.1 % (0.5-1.5); BG DEOXYHEMOGLOBIN 8.6 % (0.0-5.0); BG HCO3 ACT 23.8 mmol/L (22.0-26.0); BG METHEMOGLOBIN 0.3 % (0.0-1.5); BG OXYGEN SATURATION 91.4 % (92.0-98.5); BG PCO2 40.8 mmHg (35.0-45.0); BG PH 7.383 (7.350-7.450); BG PO2 65.4 mmHg (75.0-100.0); BG SAMPLE SITE RIGHT RADIAL; BG VENT MODE VENT - APRV
[2020-06-19] MEDS: ENOXAPARIN 40MG/0.4ML SYR SUBCUT SCH (08:26)
[2020-06-19] MEDS: FOLIC ACID/VITAMIN B COMP W-C TABLET PO SCH (08:26)
[2020-06-19] MEDS: DOCUSATE SODIUM 250MG CAPSULE PO SCH (08:26)
[2020-06-19] MEDS: DEXAMETHASONE 4MG/ML 1ML VIAL IV SCH (08:26)
[2020-06-19] MEDS: CLOPIDOGREL 75MG TABLET PO SCH (08:26)
[2020-06-19] MEDS: ASPIRIN 81MG EC TABLET PO SCH (08:26)
[2020-06-19] MEDS ORDERED: BISACODYL 10MG SUPP PR ONE (10:15)
[2020-06-19] MEDS ORDERED: NA PHOS,M-B/NA PHOS,DI-BA ENEMA 118ML PR ONE (10:15)
[2020-06-19 10:43] LABS: ATYPICAL LYMPHOCYTES 1; PLATELET ESTIMATE NORMAL
[2020-06-19] MEDS: AMLODIPINE 10MG TABLET PO SCH (11:17)
[2020-06-19] MEDS: INSULIN GLARGINE UD 100 UNITS/ML SYR SUBCUT SCH ×2 (13:07→23:15)
[2020-06-19] MEDS: ATORVASTATIN CALCIUM 40MG TABLET PO SCH (22:10)
[2020-06-20] VITALS (94 sets, daily range): BP systolic 61–160; BP diastolic 34–92
[2020-06-20] MEDS: IPRATROPIUM/ALBUTEROL 0.5-3(2.5)MG/3ML NEB HHN SCH ×6 (00:20→20:26)
[2020-06-20] MEDS: BLOOD SUGAR DIAGNOSTIC STRIP TEST SCH ×4 (00:29→18:12)
[2020-06-20 05:47] LABS: HEMATOCRIT. 30.6 % (36.0-48.0); MEAN CORPUSCULAR HEMOGLOBIN 28.4 pg (28.0-32.0); MEAN CORPUSCULAR VOLUME 87.4 fL (81.0-99.0); MEAN PLATELET VOLUME 9.9 fl (7.4-10.4); PLATELET 250 x1000/uL (130-400); RED BLOOD CELL COUNT 3.51 mill/uL (4.2-5.4); RED CELL DISTRIBUTION WIDTH 15.4 % (11.6-14.6)
[2020-06-20] MEDS: INSULIN LISPRO 100 UNITS/ML SUBCUT SCH ×3 (06:00→18:00)
[2020-06-20] MEDS: SEVELAMER CARBONATE 800 MG TABLET PO SCH ×3 (06:39→18:10)
[2020-06-20 07:27] LABS: BG BASE EXCESS -2.9 mmol/L (-2.0-2.0); BG CARBOXYHEMOGLOBIN 0.3 % (0.5-1.5); BG DEOXYHEMOGLOBIN 3.1 % (0.0-5.0); BG HCO3 ACT 21.9 mmol/L (22.0-26.0); BG METHEMOGLOBIN 0.3 % (0.0-1.5); BG OXYGEN SATURATION 96.9 % (92.0-98.5); BG OXYHEMOGLOBIN 96.3 % (94.0-97.0); BG PCO2 38.1 mmHg (35.0-45.0); BG PH 7.377 (7.350-7.450); BG PO2 95.4 mmHg (75.0-100.0); BG SAMPLE SITE RIGHT RADIAL; BG TOTAL HEMOGLOBIN 10.7 g/dL (12.0-18.0); BG VENT MODE VENT - APRV
[2020-06-20] MEDS ORDERED: SODIUM POLYSTYRENE SULFONATE 15 G/60 ML BOT PO SCH (07:45)
[2020-06-20] MEDS ORDERED: SORBITOL 70% SOLN 30ML PO SCH (07:45)
[2020-06-20] MEDS: ENOXAPARIN 40MG/0.4ML SYR SUBCUT SCH (08:01)
[2020-06-20] MEDS: CLOPIDOGREL 75MG TABLET PO SCH (08:02)
[2020-06-20] MEDS: DOCUSATE SODIUM 250MG CAPSULE PO SCH (08:02)
[2020-06-20] MEDS: FOLIC ACID/VITAMIN B COMP W-C TABLET PO SCH (08:02)
[2020-06-20] MEDS: AMLODIPINE 10MG TABLET PO SCH (08:03)
[2020-06-20] MEDS: ASPIRIN 81MG EC TABLET PO SCH (08:03)
[2020-06-20] MEDS ORDERED: DEXTROSE 50% WATER 50ML SYRINGE IV ONE (09:45)
[2020-06-20] MEDS ORDERED: INSULIN REGULAR (HUMULIN R) 300UNITS/3ML IV ONE (09:45)
[2020-06-20] MEDS ORDERED: INSULIN GLARGINE UD 100 UNITS/ML SYR SUBCUT SCH (11:00)
[2020-06-20] MEDS ORDERED: INSULIN REGULAR (HUMULIN R) 300UNITS/3ML IV SCH (11:15)
[2020-06-20] MEDS: FENTANYL CITRATE/PF 1,000 MCG in SODIUM CHLORIDE 0.9% 80 ML IV PRN ×3 (11:26→21:35)
[2020-06-20] MEDS: MIDAZOLAM HCL 100 MG in SODIUM CHLORIDE 0.9% 80 ML IV PRN ×2 (11:27→21:36)
[2020-06-20] MEDS: PANTOPRAZOLE SODIUM 40 MG/VIAL IV SCH (12:10)
[2020-06-20 14:15] LABS: PLATELET ESTIMATE NORMAL
[2020-06-20] MEDS: PIPERACILLIN/TAZOBACTAM 2.25 G in DEXTROSE 5% WATER 50 ML IV SCH (14:17)
[2020-06-20] MEDS: PHENYLEPHRINE 100 MG in DEXT 5% WATER 240 ML IV PRN (14:18)
[2020-06-20] MEDS: DEXTROSE 50% WATER 50ML SYRINGE IV PRN (14:43)
[2020-06-20] MEDS: PROPOFOL 10MG/ML 100ML 100 ML IV PRN (16:25)
[2020-06-20] MEDS: ACETAMINOPHEN 325MG TABLET PO PRN (18:10)
[2020-06-20] MEDS ORDERED: SORBITOL 70% SOLN 30ML PO NR (21:00)
[2020-06-20] MEDS: ATORVASTATIN CALCIUM 40MG TABLET PO SCH (21:13)
[2020-06-20] MEDS ORDERED: SODIUM POLYSTYRENE SULFONATE 15 G/60 ML BOT PO NR (22:30)
[2020-06-21] VITALS (69 sets, daily range): BP systolic 88–169; BP diastolic 32–76
[2020-06-21] MEDS: IPRATROPIUM/ALBUTEROL 0.5-3(2.5)MG/3ML NEB HHN SCH ×5 (00:23→20:16)
[2020-06-21] MEDS: INSULIN LISPRO 100 UNITS/ML SUBCUT SCH ×5 (01:00→23:55)
[2020-06-21] MEDS: BLOOD SUGAR DIAGNOSTIC STRIP TEST SCH ×4 (01:00→17:14)
[2020-06-21] MEDS: PIPERACILLIN/TAZOBACTAM 2.25 G in DEXTROSE 5% WATER 50 ML IV SCH ×3 (01:02→23:51)
[2020-06-21] MEDS: PROPOFOL 10MG/ML 100ML 100 ML IV PRN ×2 (01:06→06:57)
[2020-06-21] MEDS: FENTANYL CITRATE/PF 1,000 MCG in SODIUM CHLORIDE 0.9% 80 ML IV PRN (02:48)
[2020-06-21 04:38] LABS: HEMATOCRIT. 32.1 % (36.0-48.0); HEMOGLOBIN. 10.2 g/dL (12.0-16.0); RED BLOOD CELL COUNT 3.65 mill/uL (4.2-5.4); RED CELL DISTRIBUTION WIDTH 15.5 % (11.6-14.6)
[2020-06-21 04:49] LABS: CHLORIDE 93 mEq/L (98-107)
[2020-06-21 05:00] LABS: PHOSPHORUS 6.2 mg/dL (2.5-4.9)
[2020-06-21] MEDS: MIDAZOLAM HCL 100 MG in SODIUM CHLORIDE 0.9% 80 ML IV PRN (05:45)
[2020-06-21] MEDS: FENTANYL CITRATE/PF 2,500 MCG in SODIUM CHLORIDE 0.9% 200 ML IV PRN ×2 (05:46→18:19)
[2020-06-21] MEDS: PHENYLEPHRINE 100 MG in DEXT 5% WATER 240 ML IV PRN ×2 (05:47→18:21)
[2020-06-21] MEDS: SEVELAMER CARBONATE 800 MG TABLET PO SCH ×3 (06:16→17:14)
[2020-06-21] MEDS: ACETAMINOPHEN 325MG TABLET PO PRN ×2 (06:17→17:14)
[2020-06-21 06:32] LABS: BG BASE EXCESS -2.7 mmol/L (-2.0-2.0); BG CARBOXYHEMOGLOBIN 0.7 % (0.5-1.5); BG DEOXYHEMOGLOBIN 24.8 % (0.0-5.0); BG FRACTION INSPIRED OXYGEN 100; BG HCO3 ACT 23.2 mmol/L (22.0-26.0); BG OXYHEMOGLOBIN 74.5 % (94.0-97.0); BG PCO2 44.9 mmHg (35.0-45.0); BG PH 7.331 (7.350-7.450); BG PO2 42.7 mmHg (75.0-100.0); BG TOTAL HEMOGLOBIN 11.1 g/dL (12.0-18.0); BG VENT MODE VENT - AC
[2020-06-21] MEDS: CLOPIDOGREL 75MG TABLET PO SCH (08:47)
[2020-06-21] MEDS: ASPIRIN 81MG EC TABLET PO SCH (08:47)
[2020-06-21] MEDS: PANTOPRAZOLE SODIUM 40 MG/VIAL IV SCH (08:48)
[2020-06-21] MEDS: ENOXAPARIN 40MG/0.4ML SYR SUBCUT SCH (08:51)
[2020-06-21] MEDS: FOLIC ACID/VITAMIN B COMP W-C TABLET PO SCH (08:51)
[2020-06-21] MEDS: DOCUSATE SODIUM 250MG CAPSULE PO SCH (08:52)
[2020-06-21 08:58] LABS: PLATELET ESTIMATE NORMAL
[2020-06-21 08:59] LABS: MEAN PLATELET VOLUME 9.5 fl (7.4-10.4); PLATELET 316 x1000/uL (130-400)
[2020-06-21] MEDS ORDERED: PROPOFOL 10MG/ML 100ML 100 ML IV SCH (09:00)
[2020-06-21] MEDS: DEXAMETHASONE 10 MG/ML VIAL IV SCH (09:29)
[2020-06-21 13:16] LABS: BG BASE EXCESS 3.5 mmol/L (-2.0-2.0); BG CARBOXYHEMOGLOBIN 0.6 % (0.5-1.5); BG DEOXYHEMOGLOBIN 8.3 % (0.0-5.0); BG FRACTION INSPIRED OXYGEN 100; BG HCO3 ACT 28.1 mmol/L (22.0-26.0); BG METHEMOGLOBIN 0.3 % (0.0-1.5); BG OXYGEN SATURATION 91.6 % (92.0-98.5); BG OXYHEMOGLOBIN 90.8 % (94.0-97.0); BG PCO2 42.4 mmHg (35.0-45.0); BG PH 7.439 (7.350-7.450); BG PO2 61.7 mmHg (75.0-100.0); BG SAMPLE SITE RIGHT RADIAL; BG VENT MODE VENT - PRVC
[2020-06-21] MEDS: DOXYCYCLINE 100 MG in DEXT 5% WATER 100 ML IV SCH (15:28)
[2020-06-21] MEDS: ATORVASTATIN CALCIUM 40MG TABLET PO SCH (21:29)
[2020-06-21] MEDS: ACETAMINOPHEN 650MG/20.3ML UDC PO PRN (23:51)
[2020-06-22] VITALS (76 sets, daily range): BP systolic 84–152; BP diastolic 38–77
[2020-06-22] MEDS: IPRATROPIUM/ALBUTEROL 0.5-3(2.5)MG/3ML NEB HHN SCH ×7 (00:12→23:57)
[2020-06-22] MEDS: DOXYCYCLINE 100 MG in DEXT 5% WATER 100 ML IV SCH ×2 (03:35→15:28)
[2020-06-22] MEDS: INSULIN LISPRO 100 UNITS/ML SUBCUT SCH ×3 (05:19→17:21)
[2020-06-22] MEDS: BLOOD SUGAR DIAGNOSTIC STRIP TEST SCH ×4 (05:19→17:21)
[2020-06-22] MEDS: SEVELAMER CARBONATE 800 MG TABLET PO SCH ×3 (06:13→17:00)
[2020-06-22 06:25] LABS: HEMOGLOBIN. 9.2 g/dL (12.0-16.0); MEAN CORPUSCULAR HEMOGLOBIN 28.2 pg (28.0-32.0); MEAN CORPUSCULAR VOLUME 88.7 fL (81.0-99.0); MEAN PLATELET VOLUME 9.7 fl (7.4-10.4); PLATELET 281 x1000/uL (130-400); RED BLOOD CELL COUNT 3.27 mill/uL (4.2-5.4); RED CELL DISTRIBUTION WIDTH 15.5 % (11.6-14.6)
[2020-06-22] MEDS: MIDAZOLAM HCL 100 MG in SODIUM CHLORIDE 0.9% 80 ML IV PRN (06:33)
[2020-06-22 07:55] LABS: BG BASE EXCESS -1.8 mmol/L (-2.0-2.0); BG CARBOXYHEMOGLOBIN 0.3 % (0.5-1.5); BG DEOXYHEMOGLOBIN 2.6 % (0.0-5.0); BG HCO3 ACT 23.9 mmol/L (22.0-26.0); BG METHEMOGLOBIN 0.3 % (0.0-1.5); BG OXYGEN SATURATION 97.4 % (92.0-98.5); BG OXYHEMOGLOBIN 96.8 % (94.0-97.0); BG PCO2 44.2 mmHg (35.0-45.0); BG SAMPLE SITE RIGHT RADIAL; BG TOTAL HEMOGLOBIN 9.9 g/dL (12.0-18.0); BG VENT MODE VENT - P/C
[2020-06-22 08:57] LABS: PLATELET ESTIMATE NORMAL
[2020-06-22] MEDS: CLOPIDOGREL 75MG TABLET PO SCH (09:03)
[2020-06-22] MEDS: ENOXAPARIN 40MG/0.4ML SYR SUBCUT SCH (09:03)
[2020-06-22] MEDS: DOCUSATE SODIUM 250MG CAPSULE PO SCH (09:03)
[2020-06-22] MEDS: PANTOPRAZOLE SODIUM 40 MG/VIAL IV SCH (09:03)
[2020-06-22] MEDS: DEXAMETHASONE 10 MG/ML VIAL IV SCH (09:03)
[2020-06-22] MEDS: FOLIC ACID/VITAMIN B COMP W-C TABLET PO SCH (09:03)
[2020-06-22] MEDS: ASPIRIN 81MG EC TABLET PO SCH (09:03)
[2020-06-22] MEDS: INSULIN GLARGINE UD 100 UNITS/ML SYR SUBCUT SCH ×2 (10:15→22:00)
[2020-06-22] MEDS ORDERED: LACTULOSE 20G/30ML UDC PO NR (11:00)
[2020-06-22] MEDS: FENTANYL CITRATE/PF 2,500 MCG in SODIUM CHLORIDE 0.9% 200 ML IV PRN (11:09)
[2020-06-22] MEDS: PIPERACILLIN/TAZOBACTAM 2.25 G in DEXTROSE 5% WATER 50 ML IV SCH (11:13)
[2020-06-22] MEDS: ACETAMINOPHEN 325MG TABLET PO PRN (15:28)
[2020-06-22] MEDS ORDERED: INSULIN LISPRO 100 UNITS/ML SUBCUT NR ×2 (17:15→21:15)
[2020-06-22] MEDS ORDERED: VANCOMYCIN 1500MG in DEXTROSE 5% WATER 250ML IV SCH (21:00)
[2020-06-22] MEDS: CEFEPIME 2,000 MG in DEXT 5% WATER 100 ML IV SCH (21:04)
[2020-06-22] MEDS: ATORVASTATIN CALCIUM 40MG TABLET PO SCH (21:04)
[2020-06-23] VITALS (96 sets, daily range): BP systolic 96–161; BP diastolic 45–87
[2020-06-23] MEDS: INSULIN LISPRO 100 UNITS/ML SUBCUT SCH ×4 (00:55→17:06)
[2020-06-23] MEDS: BLOOD SUGAR DIAGNOSTIC STRIP TEST SCH ×4 (00:55→17:01)
[2020-06-23] MEDS: ACETAMINOPHEN 650MG/20.3ML UDC PO PRN (00:57)
[2020-06-23] MEDS: IPRATROPIUM/ALBUTEROL 0.5-3(2.5)MG/3ML NEB HHN SCH ×5 (04:11→20:24)
[2020-06-23 05:36] LABS: HEMATOCRIT. 27.6 % (36.0-48.0); MEAN CORPUSCULAR HEMOGLOBIN 28.7 pg (28.0-32.0); MEAN CORPUSCULAR VOLUME 87.8 fL (81.0-99.0); MEAN PLATELET VOLUME 9.6 fl (7.4-10.4); PLATELET 356 x1000/uL (130-400); RED BLOOD CELL COUNT 3.15 mill/uL (4.2-5.4); RED CELL DISTRIBUTION WIDTH 15.6 % (11.6-14.6)
[2020-06-23 05:44] LABS: CHLORIDE 86 mEq/L (98-107)
[2020-06-23 06:13] LABS: PHOSPHORUS 8.3 mg/dL (2.5-4.9)
[2020-06-23] MEDS: SEVELAMER CARBONATE 800 MG TABLET PO SCH ×3 (06:25→17:05)
[2020-06-23 06:54] LABS: PLATELET ESTIMATE NORMAL
[2020-06-23] MEDS: CLOPIDOGREL 75MG TABLET PO SCH (08:19)
[2020-06-23] MEDS: DOCUSATE SODIUM 250MG CAPSULE PO SCH (08:19)
[2020-06-23] MEDS: FOLIC ACID/VITAMIN B COMP W-C TABLET PO SCH (08:19)
[2020-06-23] MEDS: PANTOPRAZOLE SODIUM 40 MG/VIAL IV SCH (08:19)
[2020-06-23] MEDS: ASPIRIN 81MG EC TABLET PO SCH (08:19)
[2020-06-23] MEDS: DEXAMETHASONE 10 MG/ML VIAL IV SCH (08:19)
[2020-06-23] MEDS: ENOXAPARIN 40MG/0.4ML SYR SUBCUT SCH (08:22)
[2020-06-23 10:20] LABS: BG BASE EXCESS -5.8 mmol/L (-2.0-2.0); BG CARBOXYHEMOGLOBIN 0.3 % (0.5-1.5); BG DEOXYHEMOGLOBIN 6.9 % (0.0-5.0); BG FRACTION INSPIRED OXYGEN 80; BG HCO3 ACT 20.1 mmol/L (22.0-26.0); BG METHEMOGLOBIN 0.3 % (0.0-1.5); BG OXYGEN SATURATION 93.1 % (92.0-98.5); BG OXYHEMOGLOBIN 92.5 % (94.0-97.0); BG PH 7.308 (7.350-7.450); BG PO2 74.3 mmHg (75.0-100.0); BG SAMPLE SITE RIGHT BRACHIAL; BG TOTAL HEMOGLOBIN 9.2 g/dL (12.0-18.0); BG TOTAL RESPIRATORY RATE 22 b/min; BG VENT MODE VENT- PRVC
[2020-06-23] MEDS: INSULIN GLARGINE UD 100 UNITS/ML SYR SUBCUT SCH ×2 (11:19→21:18)
[2020-06-23] MEDS: MIDAZOLAM HCL 100 MG in SODIUM CHLORIDE 0.9% 80 ML IV PRN (11:20)
[2020-06-23] MEDS: FENTANYL CITRATE/PF 2,500 MCG in SODIUM CHLORIDE 0.9% 200 ML IV PRN (17:02)
[2020-06-23] MEDS: CEFEPIME 2,000 MG in DEXT 5% WATER 100 ML IV SCH (20:26)
[2020-06-23] MEDS: ATORVASTATIN CALCIUM 40MG TABLET PO SCH (20:30)
[2020-06-24] VITALS (94 sets, daily range): BP systolic 90–163; BP diastolic 26–84
[2020-06-24] MEDS: IPRATROPIUM/ALBUTEROL 0.5-3(2.5)MG/3ML NEB HHN SCH ×6 (00:42→20:37)
[2020-06-24] MEDS: INSULIN LISPRO 100 UNITS/ML SUBCUT SCH ×4 (01:06→17:16)
[2020-06-24 04:54] LABS: HEMATOCRIT. 24.4 % (36.0-48.0); MEAN CORPUSCULAR HEMOGLOBIN 28.4 pg (28.0-32.0); MEAN CORPUSCULAR VOLUME 86.9 fL (81.0-99.0); MEAN PLATELET VOLUME 9.5 fl (7.4-10.4); PLATELET 246 x1000/uL (130-400); RED BLOOD CELL COUNT 2.81 mill/uL (4.2-5.4); RED CELL DISTRIBUTION WIDTH 15.5 % (11.6-14.6)
[2020-06-24] MEDS: BLOOD SUGAR DIAGNOSTIC STRIP TEST SCH ×4 (06:13→17:06)
[2020-06-24] MEDS: SEVELAMER CARBONATE 800 MG TABLET PO SCH ×3 (06:23→17:16)
[2020-06-24 07:33] LABS: PLATELET ESTIMATE NORMAL
[2020-06-24] MEDS: PANTOPRAZOLE SODIUM 40 MG/VIAL IV SCH (08:18)
[2020-06-24] MEDS: DOCUSATE SODIUM 250MG CAPSULE PO SCH (08:18)
[2020-06-24] MEDS: FOLIC ACID/VITAMIN B COMP W-C TABLET PO SCH (08:18)
[2020-06-24] MEDS: ASPIRIN 81MG EC TABLET PO SCH (08:18)
[2020-06-24] MEDS: ENOXAPARIN 40MG/0.4ML SYR SUBCUT SCH (08:19)
[2020-06-24] MEDS: CLOPIDOGREL 75MG TABLET PO SCH (08:20)
[2020-06-24] MEDS ORDERED: DEXAMETHASONE 10 MG/ML VIAL IV SCH (09:00)
[2020-06-24 09:46] LABS: BG BASE EXCESS -5.8 mmol/L (-2.0-2.0); BG CARBOXYHEMOGLOBIN 0.1 % (0.5-1.5); BG DEOXYHEMOGLOBIN 12.7 % (0.0-5.0); BG FRACTION INSPIRED OXYGEN 60; BG HCO3 ACT 19.9 mmol/L (22.0-26.0); BG OXYGEN SATURATION 87.3 % (92.0-98.5); BG OXYHEMOGLOBIN 87.2 % (94.0-97.0); BG PCO2 40.2 mmHg (35.0-45.0); BG PH 7.313 (7.350-7.450); BG PO2 59.8 mmHg (75.0-100.0); BG SAMPLE SITE RIGHT RADIAL; BG TOTAL HEMOGLOBIN 8.6 g/dL (12.0-18.0); BG TOTAL RESPIRATORY RATE 23 b/min; BG VENT MODE VENT- PRVC
[2020-06-24] MEDS: INSULIN GLARGINE UD 100 UNITS/ML SYR SUBCUT SCH ×2 (12:16→21:20)
[2020-06-24] MEDS: MIDAZOLAM HCL 100 MG in SODIUM CHLORIDE 0.9% 80 ML IV PRN (17:17)
[2020-06-24] MEDS: PHENYLEPHRINE 100 MG in DEXT 5% WATER 240 ML IV PRN (17:19)
[2020-06-24] MEDS: FENTANYL CITRATE/PF 2,500 MCG in SODIUM CHLORIDE 0.9% 200 ML IV PRN (17:19)
[2020-06-24] MEDS: CEFEPIME 2,000 MG in DEXT 5% WATER 100 ML IV SCH (20:20)
[2020-06-24] MEDS: ATORVASTATIN CALCIUM 40MG TABLET PO SCH (20:27)
[2020-06-25] VITALS (87 sets, daily range): BP systolic 47–156; BP diastolic 22–85
[2020-06-25] MEDS: IPRATROPIUM/ALBUTEROL 0.5-3(2.5)MG/3ML NEB HHN SCH ×6 (00:12→20:26)
[2020-06-25] MEDS: BLOOD SUGAR DIAGNOSTIC STRIP TEST SCH ×4 (00:58→18:00)
[2020-06-25 05:10] LABS: CHLORIDE 94 mEq/L (98-107)
[2020-06-25 05:11] LABS: HEMATOCRIT. 27.1 % (36.0-48.0); HEMOGLOBIN. 8.6 g/dL (12.0-16.0); MEAN CORPUSCULAR HEMOGLOBIN 27.4 pg (28.0-32.0); MEAN CORPUSCULAR VOLUME 86.5 fL (81.0-99.0); MEAN PLATELET VOLUME 9.1 fl (7.4-10.4); PLATELET 336 x1000/uL (130-400); RED BLOOD CELL COUNT 3.13 mill/uL (4.2-5.4); RED CELL DISTRIBUTION WIDTH 15.4 % (11.6-14.6)
[2020-06-25 05:27] LABS: INR 1.1; PROTHROMBIN TIME 11.3 sec (9.6-11.0)
[2020-06-25] MEDS: INSULIN LISPRO 100 UNITS/ML SUBCUT SCH ×4 (06:00→18:00)
[2020-06-25] MEDS: SEVELAMER CARBONATE 800 MG TABLET PO SCH ×3 (06:14→16:08)
[2020-06-25] MEDS: DEXTROSE 50% WATER 50ML SYRINGE IV PRN ×2 (06:16→10:00)
[2020-06-25] MEDS ORDERED: PROPOFOL 10MG/ML 100ML 100 ML IV PRN (08:00)
[2020-06-25] MEDS ORDERED: PROPOFOL 200MG/20ML VIAL IV ONE (08:00)
[2020-06-25 08:10] LABS: BG BASE EXCESS -1.8 mmol/L (-2.0-2.0); BG CARBOXYHEMOGLOBIN 0.3 % (0.5-1.5); BG HCO3 ACT 22.5 mmol/L (22.0-26.0); BG METHEMOGLOBIN 0.2 % (0.0-1.5); BG OXYGEN SATURATION 82.9 % (92.0-98.5); BG OXYHEMOGLOBIN 82.5 % (94.0-97.0); BG PCO2 35.9 mmHg (35.0-45.0); BG PH 7.415 (7.350-7.450); BG PO2 48.9 mmHg (75.0-100.0); BG SAMPLE SITE RIGHT RADIAL; BG TOTAL HEMOGLOBIN 8.6 g/dL (12.0-18.0); BG TOTAL RESPIRATORY RATE 16 b/min; BG VENT MODE VENT - APRV
[2020-06-25] MEDS: MIDAZOLAM HCL 100 MG in SODIUM CHLORIDE 0.9% 80 ML IV PRN ×2 (08:55→21:45)
[2020-06-25] MEDS: FOLIC ACID/VITAMIN B COMP W-C TABLET PO SCH (09:07)
[2020-06-25] MEDS: DOCUSATE SODIUM 250MG CAPSULE PO SCH (09:07)
[2020-06-25] MEDS: PANTOPRAZOLE SODIUM 40 MG/VIAL IV SCH (09:08)
[2020-06-25] MEDS: MIDODRINE HCL 5MG TABLET PO SCH ×3 (10:00→16:09)
[2020-06-25 10:46] LABS: PLATELET ESTIMATE NORMAL
[2020-06-25 11:08] LABS: BG BASE EXCESS -0.4 mmol/L (-2.0-2.0); BG CARBOXYHEMOGLOBIN 0.3 % (0.5-1.5); BG DEOXYHEMOGLOBIN 4.9 % (0.0-5.0); BG HCO3 ACT 23.7 mmol/L (22.0-26.0); BG METHEMOGLOBIN 0.3 % (0.0-1.5); BG OXYGEN SATURATION 95.1 % (92.0-98.5); BG OXYHEMOGLOBIN 94.5 % (94.0-97.0); BG PCO2 36.4 mmHg (35.0-45.0); BG PH 7.431 (7.350-7.450); BG SAMPLE SITE RIGHT RADIAL; BG TOTAL HEMOGLOBIN 9.5 g/dL (12.0-18.0); BG VENT MODE VENT - APRV
[2020-06-25] MEDS: ACETAMINOPHEN 650MG/20.3ML UDC PO PRN ×2 (11:12→21:45)
[2020-06-25] MEDS: FENTANYL CITRATE/PF 2,500 MCG in SODIUM CHLORIDE 0.9% 200 ML IV PRN ×2 (11:19→21:44)
[2020-06-25] MEDS ORDERED: VANCOMYCIN 1 G PREMIX 200 ML IV SCH (12:00)
[2020-06-25] MEDS: CEFTAZIDIME PENTAHYDRATE 1 G in DEXTROSE 5% WATER 50 ML IV SCH (16:08)
[2020-06-25] MEDS: ATORVASTATIN CALCIUM 40MG TABLET PO SCH (21:42)
[2020-06-26] VITALS (97 sets, daily range): BP systolic 80–129; BP diastolic 16–92
[2020-06-26] MEDS: IPRATROPIUM/ALBUTEROL 0.5-3(2.5)MG/3ML NEB HHN SCH ×6 (00:17→20:02)
[2020-06-26] MEDS ORDERED: MIDAZOLAM HCL 100 MG in DEXT 5% WATER 80 ML IV SCH (05:00)
[2020-06-26] MEDS: MIDAZOLAM HCL 100 MG in SODIUM CHLORIDE 0.9% 80 ML IV PRN (05:26)
[2020-06-26] MEDS: PHENYLEPHRINE 100 MG in DEXT 5% WATER 240 ML IV PRN ×2 (05:29→18:20)
[2020-06-26] MEDS: SEVELAMER CARBONATE 800 MG TABLET PO SCH ×4 (05:30→17:47)
[2020-06-26 05:42] LABS: HEMATOCRIT. 22.9 % (36.0-48.0); HEMOGLOBIN. 7.5 g/dL (12.0-16.0); MEAN CORPUSCULAR HEMOGLOBIN 28.5 pg (28.0-32.0); MEAN CORPUSCULAR VOLUME 87.1 fL (81.0-99.0); MEAN PLATELET VOLUME 9.4 fl (7.4-10.4); PLATELET 226 x1000/uL (130-400); RED BLOOD CELL COUNT 2.62 mill/uL (4.2-5.4); RED CELL DISTRIBUTION WIDTH 15.4 % (11.6-14.6)
[2020-06-26] MEDS: INSULIN LISPRO 100 UNITS/ML SUBCUT SCH ×4 (06:00→18:34)
[2020-06-26] MEDS: BLOOD SUGAR DIAGNOSTIC STRIP TEST SCH ×4 (06:00→18:33)
[2020-06-26] MEDS: ACETAMINOPHEN 325MG TABLET PO PRN (08:28)
[2020-06-26] MEDS: FOLIC ACID/VITAMIN B COMP W-C TABLET PO SCH (08:35)
[2020-06-26] MEDS: DOCUSATE SODIUM 250MG CAPSULE PO SCH (08:35)
[2020-06-26] MEDS: PANTOPRAZOLE SODIUM 40 MG/VIAL IV SCH (08:35)
[2020-06-26] MEDS: MIDODRINE HCL 5MG TABLET PO SCH ×3 (08:36→17:00)
[2020-06-26 09:07] LABS: BG BASE EXCESS -4.4 mmol/L (-2.0-2.0); BG CARBOXYHEMOGLOBIN 0.1 % (0.5-1.5); BG DEOXYHEMOGLOBIN 6.3 % (0.0-5.0); BG FRACTION INSPIRED OXYGEN 100; BG HCO3 ACT 20.4 mmol/L (22.0-26.0); BG METHEMOGLOBIN 0.2 % (0.0-1.5); BG OXYGEN SATURATION 93.7 % (92.0-98.5); BG OXYHEMOGLOBIN 93.4 % (94.0-97.0); BG PCO2 36.2 mmHg (35.0-45.0); BG PH 7.369 (7.350-7.450); BG PO2 67.8 mmHg (75.0-100.0); BG SAMPLE SITE RIGHT RADIAL; BG TOTAL HEMOGLOBIN 7.7 g/dL (12.0-18.0); BG VENT MODE PRVC
[2020-06-26] MEDS ORDERED: LACTULOSE 20G/30ML UDC PO PRN (11:00)
[2020-06-26] MEDS: SUCRALFATE 1 G/10 ML UDC PO SCH ×3 (12:10→20:54)
[2020-06-26 12:47] LABS: PLATELET ESTIMATE NORMAL
[2020-06-26] MEDS: CEFTAZIDIME PENTAHYDRATE 1 G in DEXTROSE 5% WATER 50 ML IV SCH (16:00)
[2020-06-26] MEDS: FENTANYL CITRATE/PF 2,500 MCG in SODIUM CHLORIDE 0.9% 200 ML IV PRN (18:19)
[2020-06-26] MEDS: ACETAMINOPHEN 650MG/20.3ML UDC PO PRN (20:54)
[2020-06-26] MEDS: ATORVASTATIN CALCIUM 40MG TABLET PO SCH (20:54)
[2020-06-27] VITALS (115 sets, daily range): BP systolic 75–160; BP diastolic 17–92
[2020-06-27] MEDS: IPRATROPIUM/ALBUTEROL 0.5-3(2.5)MG/3ML NEB HHN SCH ×6 (00:02→19:40)
[2020-06-27] MEDS: BLOOD SUGAR DIAGNOSTIC STRIP TEST SCH ×5 (00:15→23:59)
[2020-06-27] MEDS: INSULIN LISPRO 100 UNITS/ML SUBCUT SCH ×5 (00:27→23:55)
[2020-06-27] MEDS: PHENYLEPHRINE 100 MG in DEXT 5% WATER 240 ML IV PRN ×3 (03:24→22:12)
[2020-06-27 04:59] LABS: HEMATOCRIT. 23.3 % (36.0-48.0); HEMOGLOBIN. 7.5 g/dL (12.0-16.0); MEAN CORPUSCULAR HEMOGLOBIN 28.4 pg (28.0-32.0); MEAN CORPUSCULAR VOLUME 88.5 fL (81.0-99.0); MEAN PLATELET VOLUME 9.8 fl (7.4-10.4); PLATELET 286 x1000/uL (130-400); RED BLOOD CELL COUNT 2.63 mill/uL (4.2-5.4); RED CELL DISTRIBUTION WIDTH 15.9 % (11.6-14.6)
[2020-06-27 05:25] LABS: PHOSPHORUS 8.6 mg/dL (2.5-4.9)
[2020-06-27] MEDS: SUCRALFATE 1 G/10 ML UDC PO SCH ×4 (06:03→21:27)
[2020-06-27] MEDS: SEVELAMER CARBONATE 800 MG TABLET PO SCH ×3 (06:03→16:59)
[2020-06-27] MEDS ORDERED: NOREPINEPHRINE 32 MG in DEXT 5% WATER 218 ML IV PRN (07:00)
[2020-06-27 07:42] LABS: PLATELET ESTIMATE NORMAL
[2020-06-27] MEDS: NOREPINEPHRINE 32 MG in DEXTROSE 5% WATER 250 ML IV PRN (07:47)
[2020-06-27] MEDS: FENTANYL CITRATE/PF 2,500 MCG in SODIUM CHLORIDE 0.9% 200 ML IV PRN ×2 (07:55→21:21)
[2020-06-27] MEDS: PANTOPRAZOLE SODIUM 40 MG/VIAL IV SCH (08:59)
[2020-06-27] MEDS: DOCUSATE SODIUM 250MG CAPSULE PO SCH (09:00)
[2020-06-27] MEDS: FOLIC ACID/VITAMIN B COMP W-C TABLET PO SCH (09:00)
[2020-06-27] MEDS: MIDODRINE HCL 5MG TABLET PO SCH ×3 (09:01→16:59)
[2020-06-27] MEDS: MIDAZOLAM HCL 100 MG in DEXT 5% WATER 80 ML IV PRN (10:33)
[2020-06-27] MEDS ORDERED: INSULIN GLARGINE UD 100 UNITS/ML SYR SUBCUT NR (11:30)
[2020-06-27 11:49] LABS: TOTAL IRON BINDING CAPACITY 209 ug/dL (250-450)
[2020-06-27 12:09] LABS: BG BASE EXCESS -5.9 mmol/L (-2.0-2.0); BG CARBOXYHEMOGLOBIN 0.2 % (0.5-1.5); BG DEOXYHEMOGLOBIN 19.3 % (0.0-5.0); BG FRACTION INSPIRED OXYGEN 95; BG HCO3 ACT 19.5 mmol/L (22.0-26.0); BG METHEMOGLOBIN 0.1 % (0.0-1.5); BG OXYGEN SATURATION 80.6 % (92.0-98.5); BG OXYHEMOGLOBIN 80.4 % (94.0-97.0); BG PCO2 38.2 mmHg (35.0-45.0); BG PH 7.326 (7.350-7.450); BG PO2 46.1 mmHg (75.0-100.0); BG SAMPLE SITE RIGHT RADIAL; BG TOTAL HEMOGLOBIN 11.4 g/dL (12.0-18.0); BG VENT MODE PRVC
[2020-06-27] MEDS: ACETAMINOPHEN 650MG/20.3ML UDC PO PRN (13:25)
[2020-06-27] MEDS: CEFTAZIDIME PENTAHYDRATE 1 G in DEXTROSE 5% WATER 50 ML IV SCH (15:05)
[2020-06-27 15:37] LABS: BG BASE EXCESS -5.6 mmol/L (-2.0-2.0); BG CARBOXYHEMOGLOBIN 0.3 % (0.5-1.5); BG DEOXYHEMOGLOBIN 17.3 % (0.0-5.0); BG FRACTION INSPIRED OXYGEN 100; BG HCO3 ACT 19.9 mmol/L (22.0-26.0); BG METHEMOGLOBIN 0.2 % (0.0-1.5); BG OXYGEN SATURATION 82.6 % (92.0-98.5); BG OXYHEMOGLOBIN 82.2 % (94.0-97.0); BG PCO2 38.8 mmHg (35.0-45.0); BG PH 7.327 (7.350-7.450); BG PO2 49.6 mmHg (75.0-100.0); BG SAMPLE SITE RIGHT RADIAL; BG TOTAL HEMOGLOBIN 9.3 g/dL (12.0-18.0); BG VENT MODE VENT - AC
[2020-06-27 21:21] LABS: BG BASE EXCESS -6.5 mmol/L (-2.0-2.0); BG CARBOXYHEMOGLOBIN 0.7 % (0.5-1.5); BG DEOXYHEMOGLOBIN 35.1 % (0.0-5.0); BG FRACTION INSPIRED OXYGEN 100; BG HCO3 ACT 20.3 mmol/L (22.0-26.0); BG METHEMOGLOBIN 0.3 % (0.0-1.5); BG OXYGEN SATURATION 64.5 % (92.0-98.5); BG OXYHEMOGLOBIN 63.9 % (94.0-97.0); BG PCO2 46.5 mmHg (35.0-45.0); BG PH 7.258 (7.350-7.450); BG PO2 36.9 mmHg (75.0-100.0); BG SAMPLE SITE RIGHT RADIAL; BG TOTAL HEMOGLOBIN 9.6 g/dL (12.0-18.0); BG VENT MODE VENT - AC
[2020-06-27] MEDS: ATORVASTATIN CALCIUM 40MG TABLET PO SCH (21:27)
[2020-06-27 23:57] LABS: BG BASE EXCESS -5.4 mmol/L (-2.0-2.0); BG CARBOXYHEMOGLOBIN 0.6 % (0.5-1.5); BG DEOXYHEMOGLOBIN 25.5 % (0.0-5.0); BG FRACTION INSPIRED OXYGEN 100; BG HCO3 ACT 20.8 mmol/L (22.0-26.0); BG METHEMOGLOBIN 0.1 % (0.0-1.5); BG OXYGEN SATURATION 74.3 % (92.0-98.5); BG OXYHEMOGLOBIN 73.8 % (94.0-97.0); BG PCO2 43.8 mmHg (35.0-45.0); BG PH 7.295 (7.350-7.450); BG PO2 42.3 mmHg (75.0-100.0); BG SAMPLE SITE RIGHT RADIAL; BG TOTAL HEMOGLOBIN 9.3 g/dL (12.0-18.0); BG VENT MODE PRVC
[2020-06-28] VITALS (63 sets, daily range): BP systolic 84–177; BP diastolic 32–76
[2020-06-28] MEDS: IPRATROPIUM/ALBUTEROL 0.5-3(2.5)MG/3ML NEB HHN SCH ×5 (00:18→20:09)
[2020-06-28] MEDS: MIDAZOLAM HCL 100 MG in DEXT 5% WATER 80 ML IV PRN ×2 (00:21→19:09)
[2020-06-28] MEDS: ACETAMINOPHEN 650MG/20.3ML UDC PO PRN (01:56)
[2020-06-28 05:02] LABS: BASOPHILS % 0.6 % (0.0-2.0); HEMATOCRIT. 26.1 % (36.0-48.0); HEMOGLOBIN. 8.5 g/dL (12.0-16.0); MEAN CORPUSCULAR HEMOGLOBIN 28.5 pg (28.0-32.0); MEAN CORPUSCULAR VOLUME 87.5 fL (81.0-99.0); MEAN PLATELET VOLUME 9.3 fl (7.4-10.4); MONOCYTES % 7.1 % (2.0-8.0); NEUTROPHILS % 82.3 % (40.0-76.0); PLATELET 289 x1000/uL (130-400); RED BLOOD CELL COUNT 2.99 mill/uL (4.2-5.4); RED CELL DISTRIBUTION WIDTH 16.8 % (11.6-14.6)
[2020-06-28 05:18] LABS: PHOSPHORUS 6.6 mg/dL (2.5-4.9)
[2020-06-28] MEDS: BLOOD SUGAR DIAGNOSTIC STRIP TEST SCH ×3 (05:47→18:53)
[2020-06-28] MEDS: INSULIN LISPRO 100 UNITS/ML SUBCUT SCH ×3 (05:48→18:52)
[2020-06-28] MEDS: SUCRALFATE 1 G/10 ML UDC PO SCH ×4 (05:48→20:28)
[2020-06-28] MEDS: SEVELAMER CARBONATE 800 MG TABLET PO SCH ×3 (05:48→18:50)
[2020-06-28] MEDS: DOCUSATE SODIUM 250MG CAPSULE PO SCH (09:00)
[2020-06-28 09:03] LABS: BG BASE EXCESS -9.7 mmol/L (-2.0-2.0); BG CARBOXYHEMOGLOBIN 0.9 % (0.5-1.5); BG DEOXYHEMOGLOBIN 14.6 % (0.0-5.0); BG FRACTION INSPIRED OXYGEN 100; BG HCO3 ACT 18.1 mmol/L (22.0-26.0); BG METHEMOGLOBIN 0.2 % (0.0-1.5); BG OXYGEN SATURATION 85.2 % (92.0-98.5); BG OXYHEMOGLOBIN 84.3 % (94.0-97.0); BG PCO2 48.9 mmHg (35.0-45.0); BG PH 7.187 (7.350-7.450); BG PO2 58.4 mmHg (75.0-100.0); BG SAMPLE SITE RIGHT RADIAL; BG TOTAL HEMOGLOBIN 9.2 g/dL (12.0-18.0); BG TOTAL RESPIRATORY RATE 28 b/min; BG VENT MODE VENT- PRVC
[2020-06-28] MEDS ORDERED: INSULIN GLARGINE UD 100 UNITS/ML SYR SUBCUT SCH (10:00)
[2020-06-28] MEDS: PANTOPRAZOLE SODIUM 40 MG/VIAL IV SCH (10:13)
[2020-06-28] MEDS: FOLIC ACID/VITAMIN B COMP W-C TABLET PO SCH (10:14)
[2020-06-28] MEDS: MIDODRINE HCL 5MG TABLET PO SCH ×3 (10:14→18:51)
[2020-06-28] MEDS ORDERED: SODIUM BICARBONATE 8.4% 1 MEQ/ML 50ML SYR IV NR (10:15)
[2020-06-28] MEDS: FENTANYL CITRATE/PF 2,500 MCG in SODIUM CHLORIDE 0.9% 200 ML IV PRN (10:17)
[2020-06-28 13:32] LABS: BG BASE EXCESS -9.2 mmol/L (-2.0-2.0); BG CARBOXYHEMOGLOBIN 0.3 % (0.5-1.5); BG DEOXYHEMOGLOBIN 8.8 % (0.0-5.0); BG FRACTION INSPIRED OXYGEN 100; BG HCO3 ACT 16.8 mmol/L (22.0-26.0); BG METHEMOGLOBIN 0.2 % (0.0-1.5); BG OXYGEN SATURATION 91.2 % (92.0-98.5); BG OXYHEMOGLOBIN 90.7 % (94.0-97.0); BG PH 7.275 (7.350-7.450); BG PO2 65.2 mmHg (75.0-100.0); BG SAMPLE SITE RIGHT RADIAL; BG TOTAL HEMOGLOBIN 8.9 g/dL (12.0-18.0); BG TOTAL RESPIRATORY RATE 30 b/min
[2020-06-28] MEDS: CEFTAZIDIME PENTAHYDRATE 1 G in DEXTROSE 5% WATER 50 ML IV SCH (16:57)
[2020-06-28] MEDS: NOREPINEPHRINE 32 MG in DEXTROSE 5% WATER 250 ML IV PRN (18:50)
[2020-06-28] MEDS: ATORVASTATIN CALCIUM 40MG TABLET PO SCH (20:28)
[2020-06-29] VITALS (93 sets, daily range): BP systolic 34–230; BP diastolic 15–89
[2020-06-29] MEDS: IPRATROPIUM/ALBUTEROL 0.5-3(2.5)MG/3ML NEB HHN SCH ×3 (00:06→20:06)
[2020-06-29] MEDS: INSULIN LISPRO 100 UNITS/ML SUBCUT SCH ×4 (02:00→18:00)
[2020-06-29] MEDS: FENTANYL CITRATE/PF 2,500 MCG in SODIUM CHLORIDE 0.9% 200 ML IV PRN (02:34)
[2020-06-29 05:37] LABS: BASOPHILS % 0.5 % (0.0-2.0); EOSINOPHILS % 0.6 % (0.0-5.0); HEMATOCRIT. 24.6 % (36.0-48.0); LYMPHOCYTES % 7.6 % (20.0-50.0); MEAN CORPUSCULAR HEMOGLOBIN 28.8 pg (28.0-32.0); MEAN CORPUSCULAR VOLUME 88.7 fL (81.0-99.0); MEAN PLATELET VOLUME 9.3 fl (7.4-10.4); MONOCYTES % 4.9 % (2.0-8.0); NEUTROPHILS % 86.4 % (40.0-76.0); PLATELET 224 x1000/uL (130-400); RED BLOOD CELL COUNT 2.78 mill/uL (4.2-5.4); RED CELL DISTRIBUTION WIDTH 16.9 % (11.6-14.6)
[2020-06-29] MEDS: SEVELAMER CARBONATE 800 MG TABLET PO SCH ×3 (06:03→16:52)
[2020-06-29] MEDS: SUCRALFATE 1 G/10 ML UDC PO SCH ×4 (06:06→21:00)
[2020-06-29] MEDS: BLOOD SUGAR DIAGNOSTIC STRIP TEST SCH ×4 (06:06→18:38)
[2020-06-29 08:01] LABS: BG BASE EXCESS -7.9 mmol/L (-2.0-2.0); BG DEOXYHEMOGLOBIN 15.5 % (0.0-5.0); BG HCO3 ACT 19.7 mmol/L (22.0-26.0); BG METHEMOGLOBIN 0.2 % (0.0-1.5); BG OXYGEN SATURATION 84.5 % (92.0-98.5); BG OXYHEMOGLOBIN 84.3 % (94.0-97.0); BG PCO2 50.9 mmHg (35.0-45.0); BG PH 7.206 (7.350-7.450); BG PO2 56.6 mmHg (75.0-100.0); BG SAMPLE SITE RIGHT RADIAL; BG TOTAL HEMOGLOBIN 8.9 g/dL (12.0-18.0); BG VENT MODE VENT - APRV
[2020-06-29] MEDS: PANTOPRAZOLE SODIUM 40 MG/VIAL IV SCH (09:00)
[2020-06-29] MEDS: DOCUSATE SODIUM 250MG CAPSULE PO SCH (09:00)
[2020-06-29] MEDS: MIDODRINE HCL 5MG TABLET PO SCH ×3 (09:00→16:51)
[2020-06-29] MEDS: FOLIC ACID/VITAMIN B COMP W-C TABLET PO SCH (09:00)
[2020-06-29] MEDS: INSULIN GLARGINE UD 100 UNITS/ML SYR SUBCUT SCH (10:00)
[2020-06-29 14:15] LABS: BG BASE EXCESS -3.3 mmol/L (-2.0-2.0); BG CARBOXYHEMOGLOBIN 0.4 % (0.5-1.5); BG DEOXYHEMOGLOBIN 10.6 % (0.0-5.0); BG HCO3 ACT 21.8 mmol/L (22.0-26.0); BG METHEMOGLOBIN 0.3 % (0.0-1.5); BG OXYGEN SATURATION 89.3 % (92.0-98.5); BG OXYHEMOGLOBIN 88.7 % (94.0-97.0); BG PCO2 39.4 mmHg (35.0-45.0); BG PH 7.361 (7.350-7.450); BG PO2 56.1 mmHg (75.0-100.0); BG SAMPLE SITE RIGHT RADIAL; BG TOTAL HEMOGLOBIN 9.2 g/dL (12.0-18.0); BG VENT MODE VENT - AC
[2020-06-29] MEDS: ACETAMINOPHEN 650MG/20.3ML UDC PO PRN (16:51)
[2020-06-29] MEDS: CEFTAZIDIME PENTAHYDRATE 1 G in DEXTROSE 5% WATER 50 ML IV SCH (16:53)
[2020-06-29] MEDS ORDERED: EPINEPHRINE 10 MG in SODIUM CHLORIDE 0.9% 240 ML IV PRN (19:15)
[2020-06-29] MEDS: ATORVASTATIN CALCIUM 40MG TABLET PO SCH (21:00)
[2020-06-29] MEDS: NOREPINEPHRINE 32 MG in DEXTROSE 5% WATER 250 ML IV PRN (23:46)
[2020-06-30] VITALS (73 sets, daily range): BP systolic 82–191; BP diastolic 15–67
[2020-06-30] MEDS: IPRATROPIUM/ALBUTEROL 0.5-3(2.5)MG/3ML NEB HHN SCH ×5 (00:05→16:25)
[2020-06-30] MEDS: BLOOD SUGAR DIAGNOSTIC STRIP TEST SCH ×4 (00:36→18:00)
[2020-06-30] MEDS: MIDAZOLAM HCL 100 MG in DEXT 5% WATER 80 ML IV PRN (03:32)
[2020-06-30] MEDS: FENTANYL CITRATE/PF 2,500 MCG in SODIUM CHLORIDE 0.9% 200 ML IV PRN (03:32)
[2020-06-30 05:35] LABS: HEMATOCRIT. 27.1 % (36.0-48.0); HEMOGLOBIN. 8.7 g/dL (12.0-16.0); MEAN CORPUSCULAR HEMOGLOBIN 28.4 pg (28.0-32.0); MEAN CORPUSCULAR VOLUME 88.1 fL (81.0-99.0); MEAN PLATELET VOLUME 9.9 fl (7.4-10.4); PLATELET 239 x1000/uL (130-400); RED BLOOD CELL COUNT 3.08 mill/uL (4.2-5.4); RED CELL DISTRIBUTION WIDTH 17.1 % (11.6-14.6)
[2020-06-30] MEDS: INSULIN LISPRO 100 UNITS/ML SUBCUT SCH ×4 (06:00→18:00)
[2020-06-30] MEDS: SUCRALFATE 1 G/10 ML UDC PO SCH ×3 (06:43→16:30)
[2020-06-30] MEDS: SEVELAMER CARBONATE 800 MG TABLET PO SCH ×3 (06:43→17:00)
[2020-06-30] MEDS: FOLIC ACID/VITAMIN B COMP W-C TABLET PO SCH (08:57)
[2020-06-30] MEDS: PANTOPRAZOLE SODIUM 40 MG/VIAL IV SCH (08:57)
[2020-06-30] MEDS: MIDODRINE HCL 5MG TABLET PO SCH ×3 (08:58→17:00)
[2020-06-30] MEDS: DOCUSATE SODIUM 250MG CAPSULE PO SCH (08:58)
[2020-06-30 09:12] LABS: PHOSPHORUS 6.5 mg/dL (2.5-4.9)
[2020-06-30 10:04] LABS: BG BASE EXCESS -6.4 mmol/L (-2.0-2.0); BG CARBOXYHEMOGLOBIN 0.2 % (0.5-1.5); BG DEOXYHEMOGLOBIN 8.9 % (0.0-5.0); BG FRACTION INSPIRED OXYGEN 100; BG HCO3 ACT 19.5 mmol/L (22.0-26.0); BG METHEMOGLOBIN 0.3 % (0.0-1.5); BG OXYGEN SATURATION 91.1 % (92.0-98.5); BG OXYHEMOGLOBIN 90.6 % (94.0-97.0); BG PCO2 40.4 mmHg (35.0-45.0); BG PH 7.301 (7.350-7.450); BG PO2 65.9 mmHg (75.0-100.0); BG SAMPLE SITE RIGHT RADIAL; BG TOTAL HEMOGLOBIN 9.3 g/dL (12.0-18.0); BG VENT MODE VENT - AC
[2020-06-30] MEDS: NOREPINEPHRINE 32 MG in DEXTROSE 5% WATER 250 ML IV PRN (10:50)
[2020-06-30] MEDS: INSULIN GLARGINE UD 100 UNITS/ML SYR SUBCUT SCH (10:55)
[2020-06-30] MEDS ORDERED: MORPHINE SULFATE 2 MG/ML CPJ (NOT FOR IM USE) IV PRN (17:00)
[2020-06-30] MEDS ORDERED: MORPHINE SULFATE 250 MG in DEXT 5% WATER 240 ML IV PRN (17:15)
[2020-06-30] MEDS ORDERED: MORPHINE SULFATE 250 MG in DEXT 5% WATER 225 ML IV PRN (17:39)
[2020-06-30 18:47] LABS: PLATELET ESTIMATE NORMAL
== END 2020-06-30 19:41 | disposition expired | DRG 3 ==
LOC: ER 14:53 → 7EST 18:02 → EDBEDREQSVC 18:28 → EDBEDREQ 18:28 → ENRESERV 06-07 07:31 → MICUSO 06-13 04:00
PROVIDERS: ADMIT Internal Medicine; ATTEND Internal Medicine
PROC: 5A1D70Z Performance of Urinary Filtration, Intermittent, Less than 6 Hours Per Day (ICD-10-PCS; 2020-06-07)
PROC: 5A1D70Z Performance of Urinary Filtration, Intermittent, Less than 6 Hours Per Day (ICD-10-PCS; 2020-06-10)
PROC: 5A1D70Z Performance of Urinary Filtration, Intermittent, Less than 6 Hours Per Day (ICD-10-PCS; 2020-06-11)
PROC: XW13325 Transfusion of Convalescent Plasma (Nonautologous) into Peripheral Vein, Percutaneous Approach, New Technology Group 5 (ICD-10-PCS; 2020-06-12)
PROC: 05HY33Z Insertion of Infusion Device into Upper Vein, Percutaneous Approach (ICD-10-PCS; 2020-06-15)
PROC: B54MZZA Ultrasonography of Right Upper Extremity Veins, Guidance (ICD-10-PCS; 2020-06-15)
PROC: 5A1D70Z Performance of Urinary Filtration, Intermittent, Less than 6 Hours Per Day (ICD-10-PCS; 2020-06-18)
PROC: 5A1D70Z Performance of Urinary Filtration, Intermittent, Less than 6 Hours Per Day (ICD-10-PCS; 2020-06-19)
PROC: 5A1955Z Respiratory Ventilation, Greater than 96 Consecutive Hours (ICD-10-PCS; principal; 2020-06-25)
PROC: 0B110F4 Bypass Trachea to Cutaneous with Tracheostomy Device, Open Approach (ICD-10-PCS; 2020-06-25)
PROC: 0GBJ0ZZ Excision of Thyroid Gland Isthmus, Open Approach (ICD-10-PCS; 2020-06-25)
PROC: 0BH18EZ Insertion of Endotracheal Airway into Trachea, Via Natural or Artificial Opening Endoscopic (ICD-10-PCS; 2020-06-25)
PROC: 30233N1 Transfusion of Nonautologous Red Blood Cells into Peripheral Vein, Percutaneous Approach (ICD-10-PCS; 2020-06-27)
PROC: 5A1D70Z Performance of Urinary Filtration, Intermittent, Less than 6 Hours Per Day (ICD-10-PCS; 2020-06-29)
DX: A41.89 Other specified sepsis (principal); U07.1 COVID-19; J96.01 Acute respiratory failure with hypoxia; N18.6 End stage renal disease; G92 Toxic encephalopathy; J12.89 Other viral pneumonia; G04.91 Myelitis, unspecified; R65.21 Severe sepsis with septic shock; E87.1 Hypo-osmolality and hyponatremia; I12.0 Hypertensive chronic kidney disease with stage 5 chronic kidney disease or end stage renal disease; R47.01 Aphasia; I47.1 Supraventricular tachycardia; I48.92 Unspecified atrial flutter; E11.22 Type 2 diabetes mellitus with diabetic chronic kidney disease; E66.9 Obesity, unspecified; D64.9 Anemia, unspecified; E78.5 Hyperlipidemia, unspecified; E87.8 Other disorders of electrolyte and fluid balance, not elsewhere classified; B97.89 Other viral agents as the cause of diseases classified elsewhere; D63.8 Anemia in other chronic diseases classified elsewhere; G62.9 Polyneuropathy, unspecified; E87.70 Fluid overload, unspecified; D72.810 Lymphocytopenia; E11.649 Type 2 diabetes mellitus with hypoglycemia without coma; E78.00 Pure hypercholesterolemia, unspecified; E87.5 Hyperkalemia; Z66 Do not resuscitate; Z82.49 Family history of ischemic heart disease and other diseases of the circulatory system; Z99.2 Dependence on renal dialysis; Z87.891 Personal history of nicotine dependence; Z83.3 Family history of diabetes mellitus; Z86.74 Personal history of sudden cardiac arrest; Z79.899 Other long term (current) drug therapy; Z68.37 Body mass index [BMI] 37.0-37.9, adult
CPT/HCPCS: 36415; 36600; 70496; 70498; 70551; 71045; 76700; 76937; 80048; 80053; 80061; 80076; 80202; 80320; 82270; 82375; 82550; 82607; 82728; 82746; 82805; 82962; 83036; 83540; 83550; 83605; 83615; 83735; 84100; 84145; 84439; 84443; 84478; 84481; 84484; 85025; 85044; 85379; 85384; 86140; 86850; 86900; 86920; 86927; 87070; 87077; 87186; 87635; 87804; 93005; 93306; 93970; 94003; 94640; 99291; A6261; C1725; C9113; J0692; J0696; J0713; J1100; J1650; J1815; J1940; J2060; J2250; J2270; J2274; J2370; J2405; J2543; J2704; J3010; J3370; J3490; J7030; J7040; J7050; J7060; P9016; P9017; U0003; G0480